=== PATIENT | female | born 1990 | race Caucasian/White ===

== ENCOUNTER 2021-12-18 18:38 | Emergency (ER) | payer MEDICAID, SELFPAY ==
[2021-12-18 19:57] VITALS: BP 125/88; PULSE 84; RESP 16; TEMP 36.9; O2SAT 98; BMI 22.6
--- NOTE | 2021-12-18 21:46 | W.ED.GENADLT ---
Documented by User: Ave Aranda MD 12/25/21 11:12 HPI - General Adult General: Chief complaint: Abdominal Pain Stated complaint: abd pain Time Seen by Provider: 12/18/21 20:51 History of Present Illness: Patient is 31-year-old female history of presenting to the emergency room with complaints of left-sided flank and periumbilical pain. Patient tells me pain is been going for the last 5 days. In the last 2 days, the pain has evolved from a dull pain to occasionally achy intense pain. Pain is not worse with p.o. intake. Patient denies any fever/chills, nausea/vomiting cough runny nose or sore throat. Patient has any diarrhea, melena medic easier. Patient recently was treated for UTI. Patient has no prior history renal colic. Patient denies any new vaginal bleeding or pelvic discharge. Onset: 5 days ago Duration:5 days Location:home Severity:moderate Associated symptoms: Deny chest pain, dyspnea, nausea, rash, palpitations or vomiting Review of Systems Const: Denies: fever(s) or chills Eyes: Denies: change in vision ENMT: Denies: mouth pain Card: Denies: chest pain or palpitations Resp: Denies: dyspnea or non-productive cough GI: Reports: abdominal pain (+L flank and periumbilical abd pain); Denies: nausea, vomiting or diarrhea : Denies: dysuria Musc: Denies: extremity pain Skin/Breast: Denies: rash or new lesions Neuro: Denies: weakness in extremities Psych: Reports: other (Normal mood) Gildardo/Lymph: Denies: easy bruising PFS ED PFSH: Surgical History Hx of section Social History Smoking and tobacco status: never smoked Alcohol intake: never Substance/Drug Use: never Physical Exam Const: COMMON NORMALS: alert HENMT: COMMON NORMALS: atraumatic HEAD & SCALP: atraumatic MOUTH: moist mucous membranes not abnormal Eye: COMMON NORMALS: EOMs intact bilaterally and conjunctivae normal CONJUNCTIVA: Yes conjunctivae normal Neck/C-Spine: COMMON NORMALS: full ROM and supple Resp: COMMON NORMALS: normal respiratory effort and clear to auscultation bilaterally AUSCULTATION: clear to auscultation bilaterally Cardio: COMMON NORMALS: regular rate RATE: regular rate GI: COMMON NORMALS: Soft to palpation PALPATION: Yes Soft to palpation OTHER: + Mild left flank tenderness palpation, mild left periumbilical abd tenderness palpation, no guarding rebound, guarding, rigidity. No CVA tenderness to percussion. Neg Rodriguez/Neg McBurney's point tenderness, no suprabupic tenderness to palpation. Extremity: COMMON NORMALS: full ROM Neuro: SENSORIUM/ORIENTATION: Yes alert MOTOR EXAM: No Abnormal motor strength present and Other motor observations present (no focal motor deficits) Psych: COMMON NORMALS: speech normal SPEECH: Yes normal speech MOOD & AFFECT: Yes euthymic mood Course Vital Signs: Vital signs: Vital Signs Temperature 98.5 F 12/18/21 19:57 Pulse Rate 74 12/19/21 01:24 Respiratory Rate 16 12/19/21 01:24 Blood Pressure 108/67 12/19/21 01:24 Pulse Oximetry 98 12/19/21 01:24 Oxygen Delivery Me thod 12/19/21 01:02 MDM - General Adult Medical Decision Making 31-year-old female history of prior presenting to the emergency room with left left flank and periumbilical pain for the last 5 days worsening the last 2. On exam, patient is mild tenderness palpation left flank and left periumbilical area. No guarding or rebound tenderness. No CVA tenderness. Patient is afebrile today. CT negative for any acute findings. No suspicion for other acute intra-abdominal pathology including SBO, biliary pathology, appendicitis, diverticulitis, or other emergent condition requiring surgery. UA consistent with UTI. Disposition: Discharge. Patient counseled regarding diagnostic impression, treatment plan. Patient given ED strict return precautions to return for continuation, worsening, or development of new symptoms. Instructed to f/u w/ PCP regarding symptoms today. Patient verbalized understanding. Lab Data : 12/18/21 22:25 12/18/21 21:56 Radiology Impressions Abdomen/Pelvis CT 12/18/21 22:59 IMPRESSION: No acute findings. Laboratory Results WBC 9.4 10^3/uL (4.0-10.0) 12/18/21 22:25 Corrected WBC Cancelled 12/18/21 21:56 RBC 4.18 10^6/uL (4.1-5.3) 12/18/21 22:25 Hgb 12.6 g/dL (11.5-15.3) 12/18/21 22: Hct 39.5 % (37.0-47.0) 12/18/21 22: MCV 94.5 fl (81-99) 12/18/21 22: MCH 30.1 pg (28.0-34.0) 12/18/21: MCHC 31.9 g/dL (30.0-36.0) 12/18/21: RDW 13.2 % (12.1-15.1) 12/18/21: Plt Count 246 10^3/cmm (130-400) 12/18/21: MPV 10.6 fL (7.4-10.4) H 12/18/21 22:25 Gran % Cancelled 12/18/21 21:56 Neut % (Auto) 51.2 % 12/18/21 22: Lymph % (Auto) 39.8 % 12/18/21 22:25 Whitman % (Auto) 7.3 % 12/18/21 22: Eos % (Auto) 1.3 % 12/18/21 22:25 Baso % (Auto) 0.2 % 12/18/21: Neut # (Auto) 4.82 10^3/uL (1.8-7.7) 12/18/21: Lymph # (Auto) 3.8 10^3/uL (0.8-4.8) 12/18/21 22: Whitman # (Auto) 0.7 10^3/uL (0.2-0.9) 12/18/21 22: Eos # (Auto) 0.1 10^3/uL (0.0-0.8) 12/18/21: Baso # (Auto) 0.0 10^3/uL (0.0-0.1) 12/18/21 22: Absolute Gran (auto) Cancelled 12/18/21 21:56 Nucleated RBC % (auto) 0 % 12/18/21: Nucleated RBCs # 0.0 /100WBC 12/18/21 22:25 Sodium 138 mmol/L (136-145) 12/18/21 21:56 Potassium 4.4 mmol/L (3.5-5.1) 12/18/21 21:56 Chloride 102 mmol/L (98-107) 12/18/21 21:56 Carbon Dioxide 27 mmol/L (22-29) 12/18/21 21:56 Anion Gap 13.4 (5-19) 12/18/21 21:56 BUN 10 mg/dL (6-20) 12/18/21 21:56 Creatinine 0.6 mg/dL (0.5-0.9) 12/18/21 21:56 GFR Calculation 116.6 mL/min (90-130) 12/18/21 21:56 Glucose 87 mg/dL (65-115) 12/18/21 21:56 Calculated Osmolality 284 mOsm/kg (285-295) L 12/18/21 21:56 Calcium 9.4 mg/dL (8.5-10.5) 12/18/21 21:56 Total Bilirubin 0.2 mg/dL (0.15-1.2) 12/18/21 21:56 AST 17 U/L (0-32) 12/18/21 21:56 ALT 11 U/L (0-33) 12/18/21 21:56 Alkaline Phosphatase 96 IU/L (35-105) 12/18/21 21:56 Total Protein 7.3 g/dL (6.6-8.7) 12/18/21 21:56 Albumin 4.6 g/dL (3.5-5.2) 12/18/21 21:56 Globulin 2.7 g/dL (1.3-4.6) 12/18/21 21:56 Lipase 45 U/L (13-60) 12/18/21 21:56 Urine Color Colorless (Yellow) 12/18/21 19:55 Urine Appearance Clear (CLEAR) 12/18/21 19:55 Urine pH 7 (5-7) 12/18/21 19:55 Ur Specific [place] 1.000 (1.005-1.030) L 12/18/21 19:55 Urine Protein Neg (Negative) 12/18/21 19:55 Urine Glucose (UA) Norm (Normal) 12/18/21 19:55 Urine Ketones Negative (Negative) 12/18/21 19:55 Urine Blood Neg (Negative) 12/18/21 19:55 Urine Nitrate Negative (Negative) 12/18/21 19:55 Urine Bilirubin Neg (Negative) 12/18/21 19:55 Urine Urobilinogen Norm mg/dL (Negative) 12/18/21 19:55 Ur Leukocyte Esterase 2+ (Negative) H 12/18/21 19:55 Urine RBC 0-4 /hpf (0-2) H 12/18/21 19:55 Urine WBC 40-55 /hpf (0-5) H 12/18/21 19:55 Ur Squamous Epith Cells 0-4 /hpf (0-5) H 12/18/21 19:55 Amorphous Sediment Not Reportable 12/18/21 19:55 Urine Bacteria Trace /hpf (NONE) 12/18/21 19:55 Urine HCG, Qual Negative (Negative) 12/18/21 19:55 Imaging Data Other Imaging: Radiologist's impression: [place] [address] CT Scan Report Signed Patient: Neva Crane Unit #: [id number] : 1990 Age/Sex: 31 / F ADM Date: 12/18/21 Loc: ER Room/Bed: Attending Dr: Ordering Provider/Ordering MD: Ave Aranda MD Date of Service: 12/18/21 Procedure(s): CT abdomen pelvis w con* [id number] Accession Number(s): [id number] Report Number: [id number] PROCEDURE INFORMATION: Exam: CT Abdomen And Pelvis With Contrast Exam date and time: 12/18/2021 11:41 PM Age: 31 years old Clinical indication: Abdominal pain; Localized; Left lower quadrant (llq); Prior surgery; Surgery type: Csection; Patient HX: Llq pain with dysuria. ; Additional info: Abd pain TECHNIQUE: Imaging protocol: Computed tomography of the abdomen and pelvis with contrast. Radiation optimization: All CT scans at this facility use at least one of these dose optimization techniques: automated exposure control; mA and/or kV adjustment per patient size (includes targeted exams where dose is matched to clinical indication); or iterative reconstruction. Contrast material: OMNI 350; Contrast volume: 80 ml; Contrast route: INTRAVENOUS (IV);? COMPARISON: No relevant prior studies available. RADIATION DOSE METRICS: Total DLP (mGy-cm): 341.13 FINDINGS: Lungs: Lung bases are clear. Liver: The liver is normal. Gallbladder and bile ducts: The gallbladder is normal. There is no biliary dilation. Pancreas: The pancreas is unremarkable. Spleen: The spleen is unremarkable. Adrenal glands: The adrenal glands are unremarkable. Kidneys and ureters: The kidneys are unremarkable. No hydronephrosis or stones. No ureteral dilation. Stomach and bowel: The stomach is decompressed, preventing meaningful evaluation of wall thickness. The small bowel is nondilated. The colon is unremarkable. Appendix: The appendix is normal. Intraperitoneal space: There is no intraperitoneal free air. Vasculature: The aorta is unremarkable. There is no aneurysm. The portal, splenic and superior mesenteric veins are patent. Lymph nodes: There is no lymphadenopathy in the retroperitoneum, mesentery, pelvis or inguinal regions. Urinary bladder: The urinary bladder is unremarkable. Reproductive: The uterus is unremarkable. There is no adnexal mass or large cyst. Bones/joints: Bones are unremarkable. Soft tissues: The abdominal wall is intact. CT/CT abdomen pelvis w con* [id number] IMPRESSION: No acute findings. ? Dictated By: Hugo Bronson MD Signed By: Hugo Bronson MD Signed Date/Time: 12/19/21 0033 DD/ [id number] Discharge Plan Discharge Patient Disposition: Home Clinical Impression: Abdominal pain, UTI (urinary tract infection) Condition: Stable Prescriptions: New ondansetron 4 mg tablet,disintegrating 4 mg PO Q8H PRN (Reason: nausea and vomiting) Qty: 15 0RF Discharge Orders: Discharge ED (Routine); Ordered 12/19/21 Ordered By: Bridger Pierre Discharge Diet: Advance as tolerated and Clear Liquid Discharge Activity: Increase activity as tolerated Patient Instructions: Urinary Tract Infection in Women (ED), Abdominal Pain (ED) Activity Restrictions/Additional Instructions: Thank you for visiting the emergency department. You were seen and evaluated for abdominal pain and generalized symptoms. The exact cause of your symptoms is unclear however may be related to mild urinary tract infection. This will be treated with antibiotics. Please follow-up with your primary care provider. Please return to the emergency department for worsening symptoms, inability tolerate oral intake, or anything else that you are concerned about and feel needs emergency department evaluation. Stand Alone Forms: Work/School Release Sign Out Sign Out Data: Patient Sign Out occurred on 12/18/21 at 23:07. Patient's care was discussed, and care was transferred from to Bridger Pierre MD. Coding Level of Care Code ED Mission Support Specialist for Chg Fwd Exam Comprehensive Documented by User: Bridger Pierre MD 01/03/22 06:15 HPI - General Adult General: Chief complaint: Abdominal Pain Stated complaint: abd pain Time Seen by Provider: 12/18/21 20:51 PFSH ED PFSH: Surgical History Hx of section Social History Smoking and tobacco status: never smoked Alcohol intake: never Substance/Drug Use: never Course Vital Signs: Vital signs: Vital Signs Temperature 98.5 F 12/18/21 19:57 Pulse Rate 74 12/19/21 01:24 Respiratory Rate 16 12/19/21 01:24 Blood Pressure 108/67 12/19/21 01:24 Pulse Oximetry 98 12/19/21 01:24 Oxygen Delivery Me thod 12/19/21 01:02 MDM - General Adult Medical Decision Making 31-year-old female history of prior presenting to the emergency room with left left flank and periumbilical pain for the last 5 days worsening the last 2. On exam, patient is mild tenderness palpation left flank and left periumbilical area. No guarding or rebound tenderness. No CVA tenderness. Patient is afebrile today. CT negative for any acute findings. No suspicion for other acute intra-abdominal pathology including SBO, biliary pathology, appendicitis, diverticulitis, or other emergent condition requiring surgery. UA consistent with UTI. Disposition: Discharge. Patient counseled regarding diagnostic impression, treatment plan. Patient given ED strict return precautions to return for continuation, worsening, or development of new symptoms. Instructed to f/u w/ PCP regarding symptoms today. Patient verbalized understanding. Patient care handoff received from Dr. Aranda pending completion of ED evaluation. I reviewed labs and imaging. Patient currently on antibiotics for UTI. CT without obvious cause of patient's symptoms. Satisfactory for outpatient management. Bridger Pierre MD Emergency Medicine Lab Data : 12/18/21 22:25 12/18/21 21:56 Radiology Impressions Abdomen/Pelvis CT 12/18/21 22:59 IMPRESSION: No acute findings. Laboratory Results WBC 9.4 10^3/uL (4.0-10.0) 12/18/21 22:25 Corrected WBC Cancelled 12/18/21 21:56 RBC 4.18 10^6/uL (4.1-5.3) 12/18/21 22:25 Hgb 12.6 g/dL (11.5-15.3) 12/18/21 22:25 Hct 39.5 % (37.0-47.0) 12/18/21 22: MCV 94.5 fl (81-99) 12/18/21 22:25 MCH 30.1 pg (28.0-34.0) 12/18/21 22: MCHC 31.9 g/dL (30.0-36.0) 12/18/21 22: RDW 13.2 % (12.1-15.1) 12/18/21 22:25 Plt Count 246 10^3/cmm (130-400) 12/18/21 22:25 MPV 10.6 fL (7.4-10.4) H 12/18/21 22:25 Gran % Cancelled 12/18/21 21:56 Neut % (Auto) 51.2 % 12/18/21 22:25 Lymph % (Auto) 39.8 % 12/18/21 22:25 Whitman % (Auto) 7.3 % 12/18/21 22:25 Eos % (Auto) 1.3 % 12/18/21 22:25 Baso % (Auto) 0.2 % 12/18/21 22:25 Neut # (Auto) 4.82 10^3/uL (1.8-7.7) 12/18/21 22: Lymph # (Auto) 3.8 10^3/uL (0.8-4.8) 12/18/21 22:25 Whitman # (Auto) 0.7 10^3/uL (0.2-0.9) 12/18/21 22:25 Eos # (Auto) 0.1 10^3/uL (0.0-0.8) 12/18/21 22:25 Baso # (Auto) 0.0 10^3/uL (0.0-0.1) 12/18/21 22:25 Absolute Gran (auto) Cancelled 12/18/21 21:56 Nucleated RBC % (auto) 0 % 12/18/21 22:25 Nucleated RBCs # 0.0 /100WBC 12/18/21 22:25 Sodium 138 mmol/L (136-145) 12/18/21 21:56 Potassium 4.4 mmol/L (3.5-5.1) 12/18/21 21:56 Chloride 102 mmol/L (98-107) 12/18/21 21:56 Carbon Dioxide 27 mmol/L (22-29) 12/18/21 21:56 Anion Gap 13.4 (5-19) 12/18/21 21:56 BUN 10 mg/dL (6-20) 12/18/21 21:56 Creatinine 0.6 mg/dL (0.5-0.9) 12/18/21 21:56 GFR Calculation 116.6 mL/min (90-130) 12/18/21 21:56 Glucose 87 mg/dL (65-115) 12/18/21 21:56 Calculated Osmolality 284 mOsm/kg (285-295) L 12/18/21 21:56 Calcium 9.4 mg/dL (8.5-10.5) 12/18/21 21:56 Total Bilirubin 0.2 mg/dL (0.15-1.2) 12/18/21 21:56 AST 17 U/L (0-32) 12/18/21 21:56 ALT 11 U/L (0-33) 12/18/21 21:56 Alkaline Phosphatase 96 IU/L (35-105) 12/18/21 21:56 Total Protein 7.3 g/dL (6.6-8.7) 12/18/21 21:56 Albumin 4.6 g/dL (3.5-5.2) 08/10/22 21:56 Globulin 2.7 g/dL (1.3-4.6) 12/18/21 21:56 Lipase 45 U/L (13-60) 12/18/21 21:56 Urine Color Colorless (Yellow) 12/18/21 19:55 Urine Appearance Clear (CLEAR) 12/18/21 19:55 Urine pH 7 (5-7) 12/18/21 19:55 Ur Specific [place] 1.000 (1.005-1.030) L 12/18/21 19:55 Urine Protein Neg (Negative) 12/18/21 19:55 Urine Glucose (UA) Norm (Normal) 12/18/21 19:55 Urine Ketones Negative (Negative) 12/18/21 19:55 Urine Blood Neg (Negative) 12/18/21 19:55 Urine Nitrate Negative (Negative) 12/18/21 19:55 Urine Bilirubin Neg (Negative) 12/18/21 19:55 Urine Urobilinogen Norm mg/dL (Negative) 12/18/21 19:55 Ur Leukocyte Esterase 2+ (Negative) H 12/18/21 19:55 Urine RBC 0-4 /hpf (0-2) H 12/18/21 19:55 Urine WBC 40-55 /hpf (0-5) H 12/18/21 19:55 Ur Squamous Epith Cells 0-4 /hpf (0-5) H 12/18/21 19:55 Amorphous Sediment Not Reportable 12/18/21 19:55 Urine Bacteria Trace /hpf (NONE) 12/18/21 19:55 Urine HCG, Qual Negative (Negative) 12/18/21 19:55 Discharge Plan Discharge Patient Disposition: Home Clinical Impression: Abdominal pain, UTI (urinary tract infection) Condition: Stable Prescriptions: New ondansetron 4 mg tablet,disintegrating 4 mg PO Q8H PRN (Reason: nausea and vomiting) Qty: 15 0RF Discharge Orders: Discharge ED (Routine); Ordered 12/19/21 Ordered By: Bridger Pierre Discharge Diet: Advance as tolerated and Clear Liquid Discharge Activity: Increase activity as tolerated Patient Instructions: Urinary Tract Infection in Women (ED), Abdominal Pain (ED) Activity Restrictions/Additional Instructions: Thank you for visiting the emergency department. You were seen and evaluated for abdominal pain and generalized symptoms. The exact cause of your symptoms is unclear however may be related to mild urinary tract infection. This will be treated with antibiotics. Please follow-up with your primary care provider. Please return to the emergency department for worsening symptoms, inability tolerate oral intake, or anything else that you are concerned about and feel needs emergency department evaluation. Stand Alone Forms: Work/School Release Sign Out Sign Out Data: Patient Sign Out occurred on 12/18/21 at 23:07. Patient's care was discussed, and care was transferred from to Bridger Pierre MD. Coding Level of Care Code ED Mission Support Specialist for Chg Fwd Exam Comprehensive
[2021-12-18 22:22] LABS: Add Urine Culture? Yes; Add Urine Microscopic? YES; Bacteria Urine TRACE /hpf; Bilirubin Urine Neg (Negative); Blood Urine Neg (Negative); Glucose Urine UA Norm (Normal); Ketones Urine Negative (Negative); Leukocyte Esterase Urine 2+ (Negative); Nitrate Urine Negative (Negative); Protein Urine Neg (Negative); RBC Urine 0-4 /hpf (0-2); Squamous Epithelial Cell Urine 0-4 /hpf (0-5); Urine Appearance Clear (CLEAR); Urine Color Colorless (Yellow); Urobilinogen Urine Norm (Negative); WBC Urine 40-55 /hpf (0-5); pH Urine 7 (5-7)
[2021-12-18 22:24] LABS: Alanine Aminotransferase 11 U/L (0-33); Albumin Level 4.6 g/dL (3.5-5.2); Alkaline Phosphatase 96 IU/L (35-105); Aspartate Amino Transferase 17 U/L (0-32); Blood Urea Nitrogen 10 mg/dL (6-20); Calcium 9.4 mg/dL (8.5-10.5); Carbon Dioxide 27 mmol/L (22-29); Chloride 102 mmol/L (98-107); Globulin 2.7 g/dL (1.3-4.6); Glomerular Filtration Rate 116.6 mL/min (90-130); Glucose 87 mg/dL (65-115); Lipase 45 U/L (13-60); Osmolality Calculated 284 mOsm/kg (285-295); Sodium 138 mmol/L (136-145); Total Bilirubin 0.2 mg/dL (0.15-1.2); Total Protein 7.3 g/dL (6.6-8.7)
[2021-12-18 22:27] LABS: Anion Gap 13.4 (5-19); Potassium 4.4 mmol/L (3.5-5.1)
[2021-12-18 22:31] LABS: Basophils % 0.2 %; Eosinophils # 0.1 10^3/uL (0.0-0.8); Eosinophils % 1.3 %; Hematocrit 39.5 % (37.0-47.0); Hemoglobin 12.6 g/dL (11.5-15.3); Lymphocytes # 3.8 10^3/uL (0.8-4.8); Lymphocytes % 39.8 %; Mean Corpuscular HGB Conc 31.9 g/dL (30.0-36.0); Mean Corpuscular Hemoglobin 30.1 pg (28.0-34.0); Mean Corpuscular Volume 94.5 fl (81-99); Mean Platelet Volume 10.6 fL (7.4-10.4); Monocytes # 0.7 10^3/uL (0.2-0.9); Monocytes % 7.3 %; Neutrophils # 4.82 10^3/uL (1.8-7.7); Neutrophils % 51.2 %; Nucleated Red Blood Cells % 0 %; Platelet Count 246 10^3/cmm (130-400); Red Blood Count 4.18 10^6/uL (4.1-5.3); Red Cell Distribution Width 13.2 % (12.1-15.1); White Blood Count 9.4 10^3/uL (4.0-10.0)
[2021-12-18] MEDS: sodium chloride 0.9% 1,000 ML 999 ML IV (22:51)
[2021-12-18] MEDS: famotidine 20 mg/2 mL INJ IVP (22:51)
[2021-12-18] MEDS: lidocaine 2% viscous 15 ML, aluminum-mag hydrox-simethicon 30 ML, sucralfate oral liq 1 GM PO (22:51)
--- NOTE | 2021-12-18 22:59 | CTR_ITS ---
PROCEDURE INFORMATION: Exam: CT Abdomen And Pelvis With Contrast Exam date and time: 12/18/2021 11:41 PM Age: 31 years old Clinical indication: Abdominal pain; Localized; Left lower quadrant (llq); Prior surgery; Surgery type: Csection; Patient HX: Llq pain with dysuria. ; Additional info: Abd pain TECHNIQUE: Imaging protocol: Computed tomography of the abdomen and pelvis with contrast. Radiation optimization: All CT scans at this facility use at least one of these dose optimization techniques: automated exposure control; mA and/or kV adjustment per patient size (includes targeted exams where dose is matched to clinical indication); or iterative reconstruction. Contrast material: OMNI 350; Contrast volume: 80 ml; Contrast route: INTRAVENOUS (IV); COMPARISON: No relevant prior studies available. RADIATION DOSE METRICS: Total DLP (mGy-cm): 341.13 FINDINGS: Lungs: Lung bases are clear. Liver: The liver is normal. Gallbladder and bile ducts: The gallbladder is normal. There is no biliary dilation. Pancreas: The pancreas is unremarkable. Spleen: The spleen is unremarkable. Adrenal glands: The adrenal glands are unremarkable. Kidneys and ureters: The kidneys are unremarkable. No hydronephrosis or stones. No ureteral dilation. Stomach and bowel: The stomach is decompressed, preventing meaningful evaluation of wall thickness. The small bowel is nondilated. The colon is unremarkable. Appendix: The appendix is normal. Intraperitoneal space: There is no intraperitoneal free air. Vasculature: The aorta is unremarkable. There is no aneurysm. The portal, splenic and superior mesenteric veins are patent. Lymph nodes: There is no lymphadenopathy in the retroperitoneum, mesentery, pelvis or inguinal regions. Urinary bladder: The urinary bladder is unremarkable. Reproductive: The uterus is unremarkable. There is no adnexal mass or large cyst. Bones/joints: Bones are unremarkable. Soft tissues: The abdominal wall is intact. CT/CT abdomen pelvis w con* [id number] IMPRESSION: No acute findings.
[2021-12-18] MEDS: iohexol 350 mg/mL 100 mL Btl IV (23:43)
[2021-12-19 01:02] VITALS: BP 108/67; PULSE 74; RESP 16; O2SAT 98
[2021-12-19 01:24] VITALS: BP 108/67; PULSE 74; RESP 16; O2SAT 98
== END 2021-12-19 01:26 | disposition home or self-care (01) ==
PROVIDERS: Emergency Medicine; Emergency Provider Emergency Medicine
DX: N39.0 Urinary tract infection, site not specified (principal)
CPT/HCPCS: 36415; 74177; 80053; 81001; 81025; 83690; 85025; 87086; 96361; 96374; 99285; J3490; J7030; Q9967

== ENCOUNTER 2022-01-21 18:56 | Emergency (ER) | payer MEDICAID, SELFPAY ==
[2022-01-21 19:00] VITALS: BP 136/94; PULSE 99; RESP 16; TEMP 37.2; O2SAT 100; BMI 21.5
--- NOTE | 2022-01-21 19:16 | ECG_ITS ---
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 Measurements Intervals [place] Rate: 84 P: 36 NE: 174 QRS: -1 QRSD: 90 T: 23 QT: 367 QTc: 436 Interpretive Statements SINUS RHYTHM POSSIBLE RIGHT VENTRICULAR CONDUCTION DELAY [RSR (QR) IN V1/V2] No previous ECG available for comparison Electronically Signed On 01-22-2022 9:42:49 CDT by Leilani Barrera M.D. [email or web address] ([email or web address] [email or web address] defiance regional [email or web address]/[id number]
[2022-01-21 19:46] LABS: Basophils % 0.2 %; Eosinophils # 0.1 10^3/uL (0.0-0.8); Hematocrit 39.8 % (37.0-47.0); Hemoglobin 12.6 g/dL (11.5-15.3); Lymphocytes # 3.3 10^3/uL (0.8-4.8); Mean Corpuscular HGB Conc 31.7 g/dL (30.0-36.0); Mean Corpuscular Hemoglobin 29.6 pg (28.0-34.0); Mean Corpuscular Volume 93.6 fl (81-99); Mean Platelet Volume 10.4 fL (7.4-10.4); Monocytes # 0.9 10^3/uL (0.2-0.9); Monocytes % 8.9 %; Neutrophils # 5.39 10^3/uL (1.8-7.7); Neutrophils % 55.7 %; Nucleated Red Blood Cells % 0 %; Platelet Count 338 10^3/cmm (130-400); Red Blood Count 4.25 10^6/uL (4.1-5.3); Red Cell Distribution Width 12.5 % (12.1-15.1); White Blood Count 9.7 10^3/uL (4.0-10.0)
[2022-01-21 20:18] LABS: HCG, Serum Qual Negative (Negative); Troponin(5th) Baseline 6 ng/L (0-10)
[2022-01-21 20:22] LABS: Alanine Aminotransferase 13 U/L (0-33); Albumin Level 4.2 g/dL (3.5-5.2); Alkaline Phosphatase 111 U/L (35-105); Anion Gap 13.8 (5-19); Aspartate Amino Transferase 16 U/L (0-32); Blood Urea Nitrogen 15 mg/dL (6-20); Calcium 9.5 mg/dL (8.5-10.5); Carbon Dioxide 27 mmol/L (22-29); Chloride 104 mmol/L (98-107); Globulin 3.7 g/dL (1.3-4.6); Glomerular Filtration Rate 116.6 mL/min (90-130); Glucose 100 mg/dL (65-115); Osmolality Calculated 293 mOsm/kg (285-295); Potassium 3.8 mmol/L (3.5-5.1); Sodium 141 mmol/L (136-145); Total Bilirubin 0.2 mg/dL (0.15-1.2); Total Protein 7.9 g/dL (6.6-8.7)
== END 2022-01-21 23:47 | disposition left against medical advice (07) ==
PROVIDERS: Nurse Practitioner Family; Emergency Provider Family Medicine
DX: Z53.21 Procedure and treatment not carried out due to patient leaving prior to being seen by health care provider (principal)
CPT/HCPCS: 80053; 84484; 84703; 85025; 93005; 99284

== ENCOUNTER 2022-02-05 13:09 | Emergency (ER) | payer MEDICAID, SELFPAY ==
[2022-02-05 13:16] VITALS: BP 143/92; PULSE 96; RESP 15; TEMP 37.1; O2SAT 99; BMI 21.3
--- NOTE | 2022-02-05 13:20 | ECG_ITS ---
[facility] Test Date: 2022-02-05 Pat Name: Neva Crane Department: Room: Gender: Female Car Racer: : 1990 Requested By: Gerald Ortega Order Number: [id number] Linus MD: Rocky Stratton M.D. Measurements Intervals [place] Rate: 96 P: 56 NV: 162 QRS: 4 QRSD: 98 T: 42 QT: 347 QTc: 440 Interpretive Statements SINUS RHYTHM INTERPRETATION BASED ON A DEFAULT AGE OF 40 YEARS Compared to ECG 01/21/2022 19:16:15 No significant changes Electronically Signed On 02-05-2022 14:05:25 CDT by Rocky Stratton M.D. [id number]
--- NOTE | 2022-02-05 13:40 | XR_ITS ---
WS: [id number] Exam: XR chest 1V portable [id number] Date/Time of Exam: 02/05/2022 1:42 PM Reason For Exam: dyspnea/cough No priors. Findings: The lungs are clear and fully expanded. Costophrenic angles are sharp. No infiltrates. Bronchovascula r relief appears normal. Cardiac silhouette is unremarkable. Bony elements are intact. XR/XR chest 1V portable [id number] IMPRESSION: Unremarkable chest radiograph.
--- NOTE | 2022-02-05 13:45 | ED_ITS ---
HPI - Chest Pain General: Chief Complaint: Chest Pain Stated Complaint: chest pain Time Seen by Provider: 02/05/22 13:40 Source: patient Mode of arrival: ambulatory Limitations: no limitations History of Present Illness: 31-year-old female presents emergency room with complaints of chest discomfort. She has had it for approximately a month. She has not noticed anything that exacerbates or relieves it. She denies any fever sweats or chills. No productive cough no pleuritic-like chest pain. No ra diation of her symptoms and is not associated with shortness of breath. MD complaint: chest pain Onset (ago): month(s) (1) Timing of current episode: episodic Prior episodes: Yes Onset: during rest Pain radiation: none Severity: mild Quality: tightness Relieving factors: nothing Exacerbating factors: nothing Associated symptoms: Deny abdominal pain, diaphoresis, dyspnea, fever(s), leg edema, nausea, palpitations, sense of impending doom, syncope or vomiting Review of Systems Const: Denies: fever(s), chills, fatigue, malaise or diaphoresis ENMT: Denies: throat pain, ear or mastoid pain, nasal discharge or nasal congestion Card: Reports: chest pain; Denies: palpitations, irregular heart rhythm, edema or syncope Resp: Denies: dyspnea, productive cough, non-productive cough or wheezing GI: Denies: abdominal pain, nausea or vomiting : Denies: flank pain, difficulty voiding, dysuria, urinary frequency or urinary urgency Skin/Breast: Denies: rash or pruritus [facility] ED PFSH: Medical History Hx-TIA (transient ischemic attack) Surgical History Hx of section Hx of section Social History Smoking and tobacco status: former smoker Quit status (tobacco): has quit using tobacco Alcohol intake: never Female Reproductive History: Para: 1 Physical Exam Const: COMMON NORMALS: no acute distress GENERAL APPEARANCE: cooperative and comfortable ORIENTATION/CONSCIOUSNESS: Yes awake, Yes oriented to person, Yes oriented to place and Yes oriented to time HENMT: COMMON NORMALS: normocephalic, atraumatic and hearing grossly normal bilaterally HEAD & SCALP: normocephalic and atraumatic Lymph: LYMPHATIC: no lymphadenopathy noted and no lymphedema noted Resp: COMMON NORMALS: normal respiratory effort, No retractions, No use of accessory muscles and clear to auscultation bilaterally AUSCULTATION: clear to auscultation bilaterally Cardio: COMMON NORMALS: regular rate, regular rhythm and No murmurs present (Cardio) RATE: regular rate RHYTHM: regular rhythm GI: COMMON NORMALS: Soft to palpation and No hepatosplenomegaly present AUSCULTATION: Yes normoactive bowel sounds PALPATION: Yes Soft to palpation, No Tenderness to palpation present (GI), No Guarding due to palpation present (GI) and Yes No hepatosplenomegaly present Extremity: COMMON NORMALS: normal to inspection, capillary refill normal, no clubbing, cyanosis or edema, no calf tenderness and no pedal edema Neuro: SENSORIUM/ORIENTATION: Yes oriented to person, Yes oriented to place and Yes oriented to time Skin: COMMON NORMALS: no rashes or lesions noted GENERAL SKIN EXAM: no rashes or lesions noted Course Vital Signs: Vital signs: Vital Signs Temperature 98.8 F 02/05/22 13:16 Pulse Rate 100 02/05/22 13:54 Respiratory Rate 21 H 02/05/22 13:54 Blood Pressure 140/67 02/05/22 13:54 Pulse Oximetry 98 02/05/22 13:54 Oxygen Delivery Me thod 02/05/22 13:54 MDM - Chest Pain Medical Decision Making Labs imaging and EKG reviewed. She has had this intermittently mild. No acute findings. Discharge patient home follow-up with primary care and referred to cardiology. Medical Records I reviewed the patient's medical records. Lab Data I reviewed the patient's lab results. : 02/05/22 14:27 02/05/22 14:27 Radiology Impressions Chest X-Ray 02/05/22 13:40 IMPRESSION: Unremarkable chest radiograph. Laboratory Results WBC 7.2 10^3/uL (4.0-10.0) 02/05/22 14:27 RBC 4.32 10^6/uL (4.1-5.3) 02/05/22 14:27 Hgb 13.0 g/dL (11.5-15.3) 02/05/22 14:27 Hct 40.0 % (37.0-47.0) 02/05/22 14: MCV 92.6 fl (81-99) 02/05/22 14: MCH 30.1 pg (28.0-34.0) 02/05/22 14: MCHC 32.5 g/dL (30.0-36.0) 02/05/22 14: RDW 12.3 % (12.1-15.1) 02/05/22 14:27 Plt Count 292 10^3/cmm (130-400) 02/05/22 14: MPV 10.0 fL (7.4-10.4) 02/05/22 14: Neut % (Auto) 54.3 % 02/05/22 14: Lymph % (Auto) 34.7 % 02/05/22 14: Saunders % (Auto) 8.6 % 02/05/22 14: Eos % (Auto) 1.7 % 02/05/22 14: Baso % (Auto) 0.3 % 02/05/22 14: Neut # (Auto) 3.89 10^3/uL (1.8-7.7) 02/05/22 14: Lymph # (Auto) 2.5 10^3/uL (0.8-4.8) 02/05/22 14: Saunders # (Auto) 0.6 10^3/uL (0.2-0.9) 02/05/22 14: Eos # (Auto) 0.1 10^3/uL (0.0-0.8) 02/05/22 14: Baso # (Auto) 0.0 10^3/uL (0.0-0.1) 02/05/22 14: Nucleated RBC % (auto) 0 % 02/05/22 14: Nucleated RBCs # 0.0 /100WBC 02/05/22 14:27 Sodium 141 mmol/L (136-145) 02/05/22 14:27 Potassium 3.5 mmol/L (3.5-5.1) 02/05/22 14: Chloride 104 mmol/L (98-107) 02/05/22 14: Carbon Dioxide 28 mmol/L (22-29) 02/05/22 14:27 Anion Gap 12.5 (5-19) 02/05/22 14:27 BUN 11 mg/dL (6-20) 02/05/22 14:27 Creatinine 0.6 mg/dL (0.5-0.9) 02/05/22 14:27 GFR Calculation 116.6 mL/min (90-130) 02/05/22 14:27 Glucose 83 mg/dL (65-115) 02/05/22 14:27 Calculated Osmolality 291 mOsm/kg (285-295) 02/05/22 14:27 Calcium 9.2 mg/dL (8.5-10.5) 02/05/22 14:27 Troponin T Gen 5 ng/L 6 ng/L (0-10) 02/05/22 14:27 Discharge Plan Discharge Patient Disposition: Home Clinical Impression: Atypical chest pain Condition: Stable Prescriptions: No Action aspirin [Adult Low Dose Aspirin] 81 mg tablet,delayed release (DR/EC) 81 mg PO BID medroxyprogesterone [Depo-Provera] 150 mg/mL syringe 150 mg IM .[id number] 90 Days Qty: 1 3RF venlafaxine [Effexor XR] 37.5 mg capsule,extended release 24hr 37.5 mg PO DAILY Qty: 30 0RF hydroxyzine pamoate 25 mg capsule 25 mg PO TID PRN (Reason: itching) Qty: 90 0RF levetiracetam 250 mg tablet 250 mg PO BID Discharge Orders: Discharge ED (Routine); Ordered 02/05/22 Ordered By: Gerald Ya Referrals: Vickie Ochoa FNP-C [Primary Care Provider] - Patient Instructions: Opioid Safety, Pain Management Activity Restrictions/Additional Instructions: Follow-up with your primary care doctor. Case management will make arrangements for you to follow-up with cardiology. Coding Level of Care Code ED Brass Instrument Repair Technician for Nate Fwd Exam Comprehensive
[2022-02-05 13:54] VITALS: BP 140/67; PULSE 100; RESP 21; O2SAT 98
[2022-02-05 14:34] LABS: Basophils % 0.3 %; Eosinophils # 0.1 10^3/uL (0.0-0.8); Eosinophils % 1.7 %; Lymphocytes # 2.5 10^3/uL (0.8-4.8); Lymphocytes % 34.7 %; Mean Corpuscular HGB Conc 32.5 g/dL (30.0-36.0); Mean Corpuscular Hemoglobin 30.1 pg (28.0-34.0); Mean Corpuscular Volume 92.6 fl (81-99); Monocytes # 0.6 10^3/uL (0.2-0.9); Monocytes % 8.6 %; Neutrophils # 3.89 10^3/uL (1.8-7.7); Neutrophils % 54.3 %; Nucleated Red Blood Cells % 0 %; Platelet Count 292 10^3/cmm (130-400); Red Blood Count 4.32 10^6/uL (4.1-5.3); Red Cell Distribution Width 12.3 % (12.1-15.1); White Blood Count 7.2 10^3/uL (4.0-10.0)
[2022-02-05 14:55] LABS: Troponin T (5th) Once 6 ng/L (0-10)
[2022-02-05 14:56] LABS: Anion Gap 12.5 (5-19); Blood Urea Nitrogen 11 mg/dL (6-20); Calcium 9.2 mg/dL (8.5-10.5); Carbon Dioxide 28 mmol/L (22-29); Chloride 104 mmol/L (98-107); Glomerular Filtration Rate 116.6 mL/min (90-130); Glucose 83 mg/dL (65-115); Osmolality Calculated 291 mOsm/kg (285-295); Potassium 3.5 mmol/L (3.5-5.1); Sodium 141 mmol/L (136-145)
--- NOTE | 2022-02-06 09:33 | DCPLANNER ---
Addendum entered by Mckenna Vital 05/09/22 14:03: Patient had a follow up appointment scheduled with [facility] - patient did attend appointment. Addendum entered by Mckenna Vital 02/07/22 08:52: Patient has a follow up appointment scheduled for 04.17.22 at 3:[address] Marlow at [facility]. Clinic will call patient with appointment information. Original Note: roll out manager had message to schedule a follow up appointment for patient with cardiology. roll out manager sent patients information to the front office staff at [facility]. Patients information will be reviewed. Clinic will call patient with appointment information.
== END 2022-02-05 15:27 | disposition home or self-care (01) ==
PROVIDERS: Emergency Provider Family Medicine; PCP Nurse Practitioner Family
DX: R07.89 Other chest pain (principal); Z79.82 Long term (current) use of aspirin; Z86.73 Personal history of transient ischemic attack (TIA), and cerebral infarction without residual deficits; Z87.891 Personal history of nicotine dependence
CPT/HCPCS: 71045; 80048; 84484; 85025; 93005; 99285

== ENCOUNTER → 2022-02-27 11:13 | Outpatient (BNVA) | payer MEDICAID, SELFPAY | PROVIDERS: PCP Nurse Practitioner Family; Visit Provider Nurse Practitioner Family | DX: J02.9 Acute pharyngitis, unspecified (principal); F41.9 Anxiety disorder, unspecified; J03.00 Acute streptococcal tonsillitis, unspecified | CPT/HCPCS: 87880 ==

== ENCOUNTER → 2022-04-16 16:55 | Outpatient (BNVA) | payer MEDICAID, SELFPAY | PROVIDERS: PCP Nurse Practitioner Family; Visit Provider Family Medicine | DX: R09.81 Nasal congestion (principal); R06.02 Shortness of breath; J06.9 Acute upper respiratory infection, unspecified | CPT/HCPCS: 87426 ==

== ENCOUNTER 2022-04-25 08:25 | Emergency (ER) | payer MEDICAID, SELFPAY ==
[2022-04-25 08:27] VITALS: BP 128/86; PULSE 73; RESP 18; TEMP 37; O2SAT 100; BMI 23.2
[2022-04-25 08:33] VITALS: BP 142/87; PULSE 78; O2SAT 99
--- NOTE | 2022-04-25 09:16 | ECG_ITS ---
[facility] Test Date: 2022-04-25 Pat Name: Neva Crane Department: Room: Gender: Female Math Specialist: : 1990 Requested By: Wesley Prasad Order Number: [id number] Linus MD: Rocky Stratton M.D. Measurements Intervals [place] Rate: 69 P: 46 VT: 174 QRS: 22 QRSD: 77 T: 34 QT: 375 QTc: 404 Interpretive Statements SINUS RHYTHM LOW QRS VOLTAGE IN PRECORDIAL LEADS [QRS DEFLECTION < 1.0 mV IN CHEST LEADS] Compared to ECG 02/05/2022 13:13:53 Low QRS voltage now present Electronically Signed On 04-25-2022 13:46:45 ASSOCIATE PROFESSOR COMPUTER SCIENCE by Rocky Stratton M.D. [email or web address]. [email or web address] memorial hospitalNeocoretechcleveland clinic [id number]
--- NOTE | 2022-04-25 09:16 | XRR_ITS ---
PROCEDURE INFORMATION: Exam: XR Chest Exam date and time: 04/25/2022 9:42 AM Age: 32 years old Clinical indication: Pain; Angina pectoris and right-sided; Additional info: Right sided chest pain TECHNIQUE: Imaging protocol: Radiologic exam of the chest. Views: 1 view. COMPARISON: CR XR chest 1V portable [id number] 02/05/2022 1:45 PM FINDINGS: Lungs: Unremarkable. No consolidation. Pleural spaces: Unremarkable. No pleural effusion. No pneumothorax. Heart/Mediastinum: Unremarkable. No cardiomegaly. Bones/joints: Unremarkable. XR/XR chest 1V portable [id number] IMPRESSION: No acute findings.
--- NOTE | 2022-04-25 09:18 | W.ED.CHESTPA ---
HPI - Chest Pain General: Chief Complaint: Chest Pain Stated Complaint: chest pain 2xdays Time Seen by Provider: 04/25/22 08:38 History of Present Illness: 32-year-old female presents the emergency department complaining of right-sided chest pain. She reports that she had some chest congestion last week but never had a cough or fever. Her chest pain has been constant for the last 3 days. The only time she notices that it is worse is when she has to sneeze. She denies any exertional component, hemoptysis, fever, sputum production, wheezing, nausea, vomiting, abdominal pain, radiation to the back. She does endorse some anxiety as her mother had a heart attack at the age of 39. Associated symptoms: Deny abdominal pain, dyspnea, fever(s), nausea, syncope or vomiting Review of Systems General: Reports: 10 or more systems reviewed and unremarkable except in HPI and below Const: Denies: fever(s), chills or body aches Eyes: Denies: change in vision ENMT: Denies: throat pain Card: Reports: chest pain; Denies: edema, swelling of feet/ankles, lightheadedness, syncope, pre-syncope, dyspnea on exertion or orthopnea Resp: Denies: dyspnea or productive cough GI: Denies: abdominal pain, nausea, vomiting or diarrhea : Denies: flank pain, dysuria or urinary frequency Musc: Denies: neck pain, back pain, extremity pain or extremity swelling Skin/Breast: Denies: rash or erythema Neuro: Denies: headache(s), numbness in extremities or weakness in extremities Psych: Reports: anxiety PFSH ED PFSH: Medical History Hx-TIA (transient ischemic attack) Surgical History Hx of section Hx of section Family History Mother CAD (coronary artery disease) [place] at 39 Cancer Grandmother Cancer Grandfather Dementia Denies family history of Diabetes Clotting disorder Chronic kidney disease (CKD) Suicide Anesthesia complication Bleeding disorder Lung disease Stroke Social History Smoking and tobacco status: former smoker Quit status (tobacco): has quit using tobacco Alcohol intake: former Female Reproductive History: Para: 1 Physical Exam Const: COMMON NORMALS: no limitations, alert and well nourished EXAM LIMITATIONS: no altered mental status HENMT: COMMON NORMALS: normocephalic, atraumatic and external ears normal HEAD & SCALP: normocephalic and atraumatic EXTERNAL EAR: Yes external ears normal MOUTH: no muffled voice Eye: COMMON NORMALS: EOMs intact bilaterally, conjunctivae normal and no scleral icterus CONJUNCTIVA: Yes conjunctivae normal Neck/C-Spine: COMMON NORMALS: no JVD GENERAL: Yes normal visual inspection and Yes trachea midline Chest: CHEST: Yes Symmetrical chest wall rise, No crepitus, No localized rib tenderness with anteroposterior compression, No tenderness and No Ecchymosis present Resp: COMMON NORMALS: normal respiratory effort, No use of accessory muscles and clear to auscultation bilaterally AUSCULTATION: clear to auscultation bilaterally Cardio: COMMON NORMALS: no JVD, regular rate and regular rhythm; negative for S1 normal heart sound present and negative for S2 normal heart sound present RATE: regular rate RHYTHM: regular rhythm HEART SOUNDS: S1 abnormal, S2 abnormal, no click, no gallops and no murmurs GI: COMMON NORMALS: Soft to palpation and non-tender PALPATION: Yes Soft to palpation and No Guarding due to palpation present (GI) Extremity: COMMON NORMALS: normal to inspection Neuro: COMMON NORMALS: moves all extremities, no focal motor deficits and no sensory deficits noted SENSORIUM/ORIENTATION: Yes alert SPEECH: speech normal Psych: COMMON NORMALS: mental status grossly normal, Normal thought process present, cooperative and speech normal APPEARANCE: Yes grossly normal ATTITUDE: Yes calm SPEECH: Yes normal speech THOUGHT PROCESS: Normal thought process present OTHER: Patient is calm but I get the feeling that she has some anxiety she is managing Skin: COMMON NORMALS: no rashes or lesions noted, turgor normal and no jaundice GENERAL SKIN EXAM: no rashes or lesions noted and turgor normal Course Vital Signs: Vital signs: Vital Signs Temperature 98.6 F 04/25/22 08:27 Pulse Rate 85 04/25/22 09:33 Respiratory Rate 18 04/25/22 08:27 Blood Pressure 125/89 04/25/22 10:30 Pulse Oximetry 99 04/25/22 11:00 Oxygen Delivery Me thod 04/25/22 11:00 MDM - Chest Pain Medical Decision Making Patient presents with atypical chest pain. D-dimer obtained as she's on depo--it was neg. Trop neg. Lytes okay. CXR okay EKG shows NSR w/ nl axis, nl intervals, no concerning ST elevations or depressions. Pt d/c'd with f/u and return precautions. Lab Data 04/25/22 09:37 Radiology Impressions Chest X-Ray 04/25/22 09:16 IMPRESSION: No acute findings. Laboratory Results D-Dimer 0.46 ug/mIFEU (0-0.59) 04/25/22 09:37 Sodium 137 mmol/L (136-145) 04/25/22 09:37 Potassium 4.7 mmol/L (3.5-5.1) 04/25/22 09:37 Chloride 102 mmol/L (98-107) 04/25/22 09:37 Carbon Dioxide 28 mmol/L (22-29) 04/25/22 09:37 Anion Gap 11.7 (5-19) 04/25/22 09:37 BUN 14 mg/dL (6-20) 04/25/22 09:37 Creatinine 0.6 mg/dL (0.5-0.9) 04/25/22 09:37 GFR Calculation 115.9 mL/min (90-130) 04/25/22 09:37 Glucose 118 mg/dL (65-115) H 04/25/22 09:37 Calculated Osmolality 286 mOsm/kg (285-295) 04/25/22 09:37 Calcium 9.4 mg/dL (8.5-10.5) 04/25/22 09:37 Troponin T Baseline 6 ng/L (0-10) 04/25/22 09:37 Discharge Plan Discharge Patient Disposition: Home Clinical Impression: Atypical chest pain Condition: Stable Prescriptions: No Action aspirin [Adult Low Dose Aspirin] 81 mg tablet,delayed release (DR/EC) 81 mg PO BID fluoxetine 20 mg capsule 20 mg PO DAILY Qty: 30 2RF carvedilol 6.25 mg tablet 6.25 mg PO BID 30 Days Qty: 60 5RF Rx Instructions: must administer with a meal/food azithromycin 250 mg tablet See Rx Instructions PO .COMPLEX Qty: 6 0RF Rx Instructions: For 250 mg dose pack: take 500 mg today (day 1), then 250 mg for 4 days (days 2-5) PO fluticasone propionate [Flonase Allergy Relief] 50 mcg/actuation spray,suspension 2 spray intranasal DAILY Qty: 16 0RF Rx Instructions: administer into each nostril levetiracetam 250 mg tablet 250 mg PO BID Depo-Provera 150 mg/mL syringe 150 mg IM Q90D Discharge Orders: Discharge ED (Routine); Ordered 04/25/22 Ordered By: Wesley Prasad Referrals: Vickie Ochoa FNP-C [Primary Care Provider] - 7-10 days Discharge Diet: Usual diet Discharge Activity: Resume usual activity Patient Instructions: Chest Pain - Noncardiac, Chest Pain - Chest Wall, Chest Pain (ED) Activity Restrictions/Additional Instructions: Take naproxen or ibuprofen for pain control. Try a hot/warm compress on the chest wall or hot shower. Read handout for more details. Coding Level of Care Code ED Slubber Frame Changer for Nate Fwd Exam Comprehensive
[2022-04-25 09:33] VITALS: BP 142/87; PULSE 85; O2SAT 100
[2022-04-25] MEDS: ALPRAZolam 0.5 mg Tablet PO (09:36)
[2022-04-25 10:04] LABS: Troponin(5th) Baseline 6 ng/L (0-10)
[2022-04-25 10:05] LABS: Anion Gap 11.7 (5-19); Blood Urea Nitrogen 14 mg/dL (6-20); Calcium 9.4 mg/dL (8.5-10.5); Carbon Dioxide 28 mmol/L (22-29); Chloride 102 mmol/L (98-107); Glomerular Filtration Rate 115.9 mL/min (90-130); Glucose 118 mg/dL (65-115); Osmolality Calculated 286 mOsm/kg (285-295); Potassium 4.7 mmol/L (3.5-5.1); Sodium 137 mmol/L (136-145)
[2022-04-25 10:30] VITALS: BP 125/89; O2SAT 99
[2022-04-25 10:59] LABS: D Dimer 0.46 ug/mIFEU (0-0.59)
[2022-04-25 11:00] VITALS: O2SAT 99
[2022-04-25 11:51] VITALS: PULSE 90; O2SAT 100
== END 2022-04-25 11:50 | disposition home or self-care (01) ==
PROVIDERS: Emergency Provider Emergency Medicine; PCP Nurse Practitioner Family
DX: R07.89 Other chest pain (principal); Z86.73 Personal history of transient ischemic attack (TIA), and cerebral infarction without residual deficits; Z87.891 Personal history of nicotine dependence; Z79.82 Long term (current) use of aspirin
CPT/HCPCS: 36415; 71045; 80048; 84484; 85378; 93005; 99285

== ENCOUNTER 2022-06-23 13:56 | Emergency (ER) | payer MEDICAID, SELFPAY ==
[2022-06-23 14:01] VITALS: BP 142/100; PULSE 88; RESP 16; TEMP 36.2; O2SAT 97
--- NOTE | 2022-06-23 14:50 | W.ED.BACK ---
HPI - Back Pain/Injury General: Chief Complaint: Abdominal Pain Stated Complaint: Left side rib pain Time Seen by Provider: 06/23/22 14:39 Source: patient Mode of arrival: ambulatory Limitations: no limitations History of Present Illness: Patient is a 32-year-old female who presents to ED today with a complaint of back pain over the past 2 to 3 days. She states pain seems to be near her mid back with radiation into the left side of her back and around into her left abdomen. She denies any injury or trauma. She states she did feel nauseous yesterday but had no episodes of emesis. Bowel movements have been normal. She states she has been noticing dysuria and urinary urgency. No history of pyelonephritis or kidney/ureter stones. Patient has not been running fevers. She is not having any chest pain, shortness of breath, difficulty breathing. MD elicited complaint: back pain Onset (ago): day(s) Timing: constant Severity: moderate Similar Symptoms Previously: No Location: thoracic spine and left flank Radiation: abdomen Exacerbating factors: none Relieving factors: none Associated symptoms: Reports abdominal pain, dysuria, nausea and urinary urgency; Deny chills, change in bowel habits, fatigue, fever(s), hematuria or vomiting Work related injury: No Review of Systems Const: Denies: fever(s), chills, body aches, fatigue or malaise Card: Denies: chest pain Resp: Denies: dyspnea GI: Reports: abdominal pain and nausea; Denies: vomiting, change in bowel habits, hematochezia or melena : Reports: dysuria and urinary urgency; Denies: flank pain, difficulty voiding, urinary frequency, urinary hesitancy, hematuria or pelvic pain Musc: Reports: back pain; Denies: neck pain, extremity pain, extremity swelling, joint pain or joint swelling Skin/Breast: Denies: rash Neuro: Denies: headache(s), numbness in extremities, weakness in extremities or sensory changes PFSH ED PFSH: Medical History Hx-TIA (transient ischemic attack) Surgical History Hx of section Hx of section Family History Mother CAD (coronary artery disease) [place] at 39 Cancer Grandmother Cancer Grandfather Dementia Denies family history of Diabetes Clotting disorder Chronic kidney disease (CKD) Suicide Anesthesia complication Bleeding disorder Lung disease Stroke Social History Smoking and tobacco status: former smoker Quit status (tobacco): has quit using tobacco Alcohol intake: former Female Reproductive History: Para: 1 Physical Exam Const: COMMON NORMALS: no acute distress, average body habitus, patient oriented x3, no limitations, healthy appearing, alert and well nourished ORIENTATION/CONSCIOUSNESS: Yes awake, Yes oriented to person, Yes oriented to place and Yes oriented to time HENMT: COMMON NORMALS: normocephalic and atraumatic HEAD & SCALP: normal to inspection, normocephalic and atraumatic Chest: COMMONS NORMALS: normal inspection of the chest and normal palpation of entire chest wall Resp: COMMON NORMALS: normal respiratory effort and clear to auscultation bilaterally AUSCULTATION: clear to auscultation bilaterally Cardio: COMMON NORMALS: regular rate and regular rhythm RATE: regular rate RHYTHM: regular rhythm GI: COMMON NORMALS: Normal to inspection, nondistended, normoactive bowel sounds present, Soft to palpation, No hepatosplenomegaly present and no masses INSPECTION: Yes normal to inspection AUSCULTATION: Yes normoactive bowel sounds PALPATION: Yes Soft to palpation, Yes Tenderness to palpation present (GI) (throughout L abdomen, suprapubic; non-surgical exam), No Guarding due to palpation present (GI), No Rigid due to palpation and Yes No hepatosplenomegaly present : BLADDER/KIDNEY EXAM: Yes CVA tenderness on the left (mild) Back/Pelvis: COMMON NORMALS: thoracic and lumbar spine normal to inspection, no thoracic nor lumbar tenderness and thoraco-lumbar ROM normal GENERAL BACK: Yes CVA tenderness Extremity: COMMON NORMALS: normal to inspection GENERAL: Yes normal exam except as noted Neuro: ANASTASIA COMA SCALE: document GCS findings Anastasia coma scale eye opening: Spontaneous [place] coma scale verbal response: Orientated Anastasia coma scale motor response: Obey commands Anastasia coma scale total score: 15 COMMON NORMALS: patient oriented x3, moves all extremities, no focal motor deficits, no sensory deficits noted and gait normal SENSORIUM/ORIENTATION: Yes alert, Yes oriented to person, Yes oriented to place and Yes oriented to time Skin: COMMON NORMALS: no rashes or lesions noted GENERAL SKIN EXAM: no rashes or lesions noted Course Vital Signs: Vital signs: Vital Signs Temperature 97.2 F L 06/23/22 14:01 Pulse Rate 79 06/23/22 17:49 Respiratory Rate 16 06/23/22 14:01 Blood Pressure 133/96 06/23/22 17:49 Pulse Oximetry 100 06/23/22 17:49 Oxygen Delivery Me thod 06/23/22 16:45 MDM - Back Pain/Injury Medical Decision Making Patient here with left-sided back pain with radiation into her abdomen along with dysuria and urinary urgency. She clinically is in no acute distress. Her vital signs are stable. UA showing 2+ blood, 1+ leuks, 10-15 WBCs, and trace bacteria and mucus. She will be treated for a pyelonephritis. Will culture urine. Remainder of labs are unremarkable. Return to ED precautions given. Labs 06/23/22 14:55 06/23/22 14:55 Radiology Impressions Abdomen/Pelvis CT 06/23/22 16:00 IMPRESSION: 1. Limited noncontrast examination without CT evidence of acute intra-abdominal or pelvic pathology. 2. Additional findings, as above. Laboratory Results WBC 10.3 10^3/uL (4.0-10.0) H 06/23/22 14:55 RBC 4.55 10^6/uL (4.1-5.3) 06/23/22 14:55 Hgb 13.4 g/dL (11.5-15.3) 06/23/22 14:55 Hct 41.9 % (37.0-47.0) 06/23/22 14:55 MCV 92.1 fl (81-99) 06/23/22 14:55 MCH 29.5 pg (28.0-34.0) 06/23/22 14:55 MCHC 32.0 g/dL (30.0-36.0) 06/23/22 14:55 RDW 13.1 % (12.1-15.1) 06/23/22 14:55 Plt Count 262 10^3/cmm (130-400) 06/23/22 14:55 MPV 10.0 fL (7.4-10.4) 06/23/22 14:55 Neut % (Auto) 61.8 % 06/23/22 14:55 Lymph % (Auto) 26.7 % 06/23/22 14:55 [place] % (Auto) 9.2 % 06/23/22 14:55 Eos % (Auto) 1.7 % 06/23/22 14:55 Baso % (Auto) 0.3 % 06/23/22 14:55 Neut # (Auto) 6.38 10^3/uL (1.8-7.7) 06/23/22 14:55 Lymph # (Auto) 2.8 10^3/uL (0.8-4.8) 06/23/22 14:55 [place] # (Auto) 1.0 10^3/uL (0.2-0.9) H 06/23/22 14:55 Eos # (Auto) 0.2 10^3/uL (0.0-0.8) 06/23/22 14:55 Baso # (Auto) 0.0 10^3/uL (0.0-0.1) 06/23/22 14:55 Nucleated RBC % (auto) 0 % 06/23/22 14:55 Nucleated RBCs # 0.0 /100WBC 06/23/22 14:55 Sodium 137 mmol/L (136-145) 06/23/22 14:55 Potassium 4.3 mmol/L (3.5-5.1) 06/23/22 14:55 Chloride 101 mmol/L (98-107) 06/23/22 14:55 Carbon Dioxide 27 mmol/L (22-29) 06/23/22 14:55 Anion Gap 13.3 (5-19) 06/23/22 14:55 BUN 18 mg/dL (6-20) 06/23/22 14:55 Creatinine 0.6 mg/dL (0.5-0.9) 06/23/22 14:55 GFR Calculation 115.9 mL/min (90-130) 06/23/22 14:55 Glucose 90 mg/dL (65-115) 06/23/22 14:55 Calculated Osmolality 285 mOsm/kg (285-295) 06/23/22 14:55 Calcium 9.1 mg/dL (8.5-10.5) 06/23/22 14:55 Total Bilirubin 0.2 mg/dL (0.15-1.2) 06/23/22 14:55 AST 15 U/L (0-32) 06/23/22 14:55 ALT 20 U/L (0-33) 06/23/22 14:55 Alkaline Phosphatase 99 U/L (35-105) 06/23/22 14:55 Total Protein 7.5 g/dL (6.6-8.7) 06/23/22 14:55 Albumin 4.5 g/dL (3.5-5.2) 06/23/22 14:55 Globulin 3.0 g/dL (1.3-4.6) 06/23/22 14:55 Lipase 28 U/L (13-60) 06/23/22 14:55 HCG, Qual Negative (Negative) 06/23/22 14:55 Urine Color Yellow (Yellow) 06/23/22 14:45 Urine Appearance Clear (CLEAR) 06/23/22 14:45 Urine pH 6 (5-7) 06/23/22 14:45 Ur Specific [place] 1.015 (1.005-1.030) 06/23/22 14:45 Urine Protein Neg (Negative) 06/23/22 14:45 Urine Glucose (UA) Norm (Normal) 06/23/22 14:45 Urine Ketones Negative (Negative) 06/23/22 14:45 Urine Blood 2+ (Negative) H 06/23/22 14:45 Urine Nitrate Negative (Negative) 06/23/22 14:45 Urine Bilirubin Neg (Negative) 06/23/22 14:45 Urine Urobilinogen 1 mg/dL (Negative) H 06/23/22 14:45 Ur Leukocyte Esterase 1+ (Negative) H 06/23/22 14:45 Urine RBC 15-25 /hpf (0-2) H 06/23/22 14:45 Urine WBC 10-15 /hpf (0-5) H 06/23/22 14:45 Ur Squamous Epith Cells 5-10 /hpf (0-5) H 06/23/22 14:45 Amorphous Sediment Not Reportable 06/23/22 14:45 Urine Bacteria Trace /hpf (NONE) 06/23/22 14:45 Urine Mucus 1+ /hpf 06/23/22 14:45 Discharge Plan Discharge Patient Disposition: Home Clinical Impression: Pyelonephritis Condition: Stable Prescriptions: New Cipro 500 mg tablet 500 mg PO Q12H Qty: 14 0RF No Action aspirin [Adult Low Dose Aspirin] 81 mg tablet,delayed release (DR/EC) 81 mg PO BID fluoxetine 20 mg capsule 20 mg PO DAILY Qty: 30 2RF carvedilol 6.25 mg tablet 6.25 mg PO BID 30 Days Qty: 60 5RF Rx Instructions: must administer with a meal/food Flonase Allergy Relief 50 mcg/actuation spray,suspension 2 spray intranasal DAILY PRN (Reason: Allergy Symptoms) Rx Instructions: administer into each nostril levetiracetam 250 mg tablet 250 mg PO BID medroxyprogesterone [Depo-Provera] 150 mg/mL syringe 150 mg IM Q90D Discharge Orders: Discharge ED (Routine); Ordered 06/23/22 Ordered By: Deedee Coles Referrals: Vickie Ochoa FNP-C [Primary Care Provider] - Patient Instructions: Kidney Infection (ED), Pyelonephritis Activity Restrictions/Additional Instructions: As we discussed fill your antibiotics and begin them immediately. You need to return to the emergency department for repetitive episodes of vomiting, fevers greater than 100.4, generally feeling unwell or worse, severe back or flank pains, or any other concerns you may have. I hope you begin to feel better soon. Coding Level of Care Code ED Gunsmith Apprentice for Nate Castaneda
[2022-06-23] MEDS: ketorolac 30 mg/mL INJ IM (15:21)
[2022-06-23 15:22] LABS: Basophils % 0.3 %; Eosinophils # 0.2 10^3/uL (0.0-0.8); Eosinophils % 1.7 %; Hematocrit 41.9 % (37.0-47.0); Hemoglobin 13.4 g/dL (11.5-15.3); Lymphocytes # 2.8 10^3/uL (0.8-4.8); Lymphocytes % 26.7 %; Mean Corpuscular Hemoglobin 29.5 pg (28.0-34.0); Mean Corpuscular Volume 92.1 fl (81-99); Monocytes % 9.2 %; Neutrophils # 6.38 10^3/uL (1.8-7.7); Neutrophils % 61.8 %; Nucleated Red Blood Cells % 0 %; Platelet Count 262 10^3/cmm (130-400); Red Blood Count 4.55 10^6/uL (4.1-5.3); Red Cell Distribution Width 13.1 % (12.1-15.1); White Blood Count 10.3 10^3/uL (4.0-10.0)
[2022-06-23 15:38] LABS: HCG, Serum Qual Negative (Negative)
[2022-06-23 15:41] LABS: Alanine Aminotransferase 20 U/L (0-33); Albumin Level 4.5 g/dL (3.5-5.2); Alkaline Phosphatase 99 U/L (35-105); Anion Gap 13.3 (5-19); Aspartate Amino Transferase 15 U/L (0-32); Blood Urea Nitrogen 18 mg/dL (6-20); Calcium 9.1 mg/dL (8.5-10.5); Carbon Dioxide 27 mmol/L (22-29); Chloride 101 mmol/L (98-107); Glomerular Filtration Rate 115.9 mL/min (90-130); Glucose 90 mg/dL (65-115); Lipase 28 U/L (13-60); Osmolality Calculated 285 mOsm/kg (285-295); Potassium 4.3 mmol/L (3.5-5.1); Sodium 137 mmol/L (136-145); Total Bilirubin 0.2 mg/dL (0.15-1.2); Total Protein 7.5 g/dL (6.6-8.7)
[2022-06-23 15:42] VITALS: BP 121/92; PULSE 76; O2SAT 100
[2022-06-23 15:53] LABS: Bilirubin Urine Neg (Negative); Blood Urine 2+ (Negative); Glucose Urine UA Norm (Normal); Ketones Urine Negative (Negative); Leukocyte Esterase Urine 1+ (Negative); Nitrate Urine Negative (Negative); Protein Urine Neg (Negative); Specific Gravity, Urine 1.015 (1.005-1.030); Urine Appearance Clear (CLEAR); Urine Color Yellow (Yellow); Urobilinogen Urine 1 mg/dL (Negative); pH Urine 6 (5-7)
[2022-06-23 15:54] LABS: Add Urine Microscopic? YES; Mucus Urine 1+ /hpf; RBC Urine 15-25 /hpf (0-2)
[2022-06-23 15:55] LABS: Bacteria Urine TRACE /hpf
[2022-06-23 15:56] LABS: Add Urine Culture? Yes
--- NOTE | 2022-06-23 16:00 | CTR_ITS ---
PROCEDURE INFORMATION: Exam: CT Abdomen And Pelvis Without Contrast Exam date and time: 06/23/2022 4:35 PM Age: 32 years old Clinical indication: Pain; Other: L flank; Prior surgery; Surgery date: 6+ months; Surgery type: C section; Additional info: L back/flank pain TECHNIQUE: Imaging protocol: Computed tomography of the abdomen and pelvis without contrast. Axial, coronal and sagittal reformatted images were created and reviewed. Radiation optimization: All CT scans at this facility use at least one of these dose optimization techniques: automated exposure control; mA and/or kV adjustment per patient size (includes targeted exams where dose is matched to clinical indication); or iterative reconstruction. Other protocol: This patient has received [address] and 0 known cardiac nuclear medicine studies in the 12 months prior to the current study. COMPARISON: CT abdomen pelvis w con* [id number] 12/18/2021 11:41 PM RADIATION DOSE METRICS: Total DLP (mGy-cm): 353.54 FINDINGS: Liver: Unremarkable. Gallbladder and bile ducts: No radiodense gallstones. No biliary ductal dilatation. Pancreas: Unremarkable. Spleen: Coarse calcified splenic granulomata. Adrenal glands: Normal. No mass. Kidneys and ureters: No mass. No radiodense calculi. No hydronephrosis. Stomach and bowel: Moderate amount of retained stool in the colon. No obstruction. No bowel wall thickening. No pneumatosis. Appendix: Normal. Intraperitoneal space: No free fluid. No organized fluid collection. No free air. Vasculature: Unremarkable. No aneurysm. Lymph nodes: No pathologically enlarged lymph nodes. Urinary bladder: Unremarkable as visualized. Reproductive: Unremarkable. Bones/joints: No acute osseous abnormality. Soft tissues: Tiny, fat containing umbilical hernia. CT/CT kidney stone [id number] IMPRESSION: 1. Limited noncontrast examination without CT evidence of acute intra-abdominal or pelvic pathology. 2. Additional findings, as above.
[2022-06-23 16:45] VITALS: BP 133/96; PULSE 79; O2SAT 100
[2022-06-23] MEDS: cefTRIAXone 1,000 MG in water for injection-sterile 2.1 ML 1 MG IM (17:35)
[2022-06-23 17:49] VITALS: BP 133/96; PULSE 79; O2SAT 100
== END 2022-06-23 17:50 | disposition home or self-care (01) ==
PROVIDERS: Emergency Provider Physician Assistant; PCP Nurse Practitioner Family
DX: N12 Tubulo-interstitial nephritis, not specified as acute or chronic (principal); Z79.82 Long term (current) use of aspirin; Z87.891 Personal history of nicotine dependence; Z86.73 Personal history of transient ischemic attack (TIA), and cerebral infarction without residual deficits
CPT/HCPCS: 74176; 80053; 81001; 83690; 84703; 85025; 87086; 96365; 96372; 99285; J0696; J1885

== ENCOUNTER 2022-06-30 10:22 | Outpatient (CLI) | payer MEDICAID, SELFPAY ==
--- NOTE | 2022-06-30 | USCV_ITS ---
Rosa Maria Neva Age: 32 Gender: F : 1990 Exam Date: 06/30/2022 11:23 Ordering Phys: Triny Marlow MD ([email or web address]) Technologist: Anupam Christie Exam Location: [facility] [place] Indication: hypertrophy BP: 128 / 82 HR: 83 Rhythm: Sinus Technical Quality: Adequate MEASUREMENTS (Male / Female) Normal Values 2D ECHO LV Diastolic Diameter PLAX 4.3 cm 4.2 - 5.9 / 3.9 - 5.3 cm LV Systolic Diameter PLAX 2.5 cm IVS Diastolic Thickness 0.6 cm 0.6 - 1.0 / 0.6 - 0.9 cm IVS Systolic Thickness 1.2 cm LVPW Diastolic Thickness 1.1 cm 0.6 - 1.0 / 0.6 - 0.9 cm LVPW Systolic Thickness 1.5 cm LVOT Diameter 2.0 cm LV Ejection Fraction 2D Teich 73.3 % LV Ejection Fraction MOD 2C 68.6 % LV Ejection Fraction 2C AL 69.1 % LA Diameter 2.9 cm LA Width 2.7 cm LA Height 3.7 cm RA Width 2.8 cm RA Height 3.8 cm Aorta at Sinotubular Diameter 2.0 cm IVC Diameter 1.4 cm M-MODE Aortic Annulus Diameter 2.8 cm LA Ao Ratio MM 1.0 MV E Point Septal Separation 0.7 cm DOPPLER AV Peak Velocity 105.3 cm/s LVOT Peak Velocity 96.0 cm/s AV Area Cont Eq vti 3.3 cm squared AV Area Cont Eq pk 2.9 cm squared MV Peak Velocity 95.0 cm/s MV Area PHT 4.0 cm squared Mitral E to A Ratio 1.2 MV E' Velocity 43.5 cm/s Mitral E to MV E' Ratio 5.4 Mitral E to LV E' Lateral Ratio 5.2 Mitral E to LV E' Septal Ratio 5.6 Right Atrial Pressure 3.0 mmHg PV Peak Velocity 88.7 cm/s RV Acceleration Time 0.1 s RV Ejection Time 0.2 s RV AcT/ET 0.5 FINDINGS Left Ventricle Normal left ventricular size and systolic function, EF 64 %. No regional wall motion abnormalities. Right Ventricle Normal right ventricular size and systolic function. Right Atrium Normal right atrial size. Left Atrium The left atrium is normal in size. Mitral Valve No gross abnormalities noted Aortic Valve No gross abnormalities noted Tricuspid Valve No gross abnormalities noted. Pulmonic Valve No gross abnormalities noted Pericardium Normal pericardium without effusion. Aorta Normal ascending aorta dimension. IVC Normal inferior vena cava. CONCLUSIONS Normal left ventricular size and systolic function, EF 64 %. No regional wall motion abnormalities. Normal cardiac chamber sizes. No significant stenotic or regurgitant valvular lesions. There is no pericardial effusion. There are no intracardiac masses. No similar previous studies are available for comparison Dr Triny Marlow MD FACC (Electronically Signed) Final Date: 01 July 2022 20:06 S
== END 2022-06-30 10:23 | disposition home or self-care (01) ==
LOC: RAD 10:22
PROVIDERS: PCP Nurse Practitioner Family; Visit Provider Internal Medicine Cardiovascular Disease
DX: I51.7 Cardiomegaly (principal)
CPT/HCPCS: 93306

== ENCOUNTER 2022-08-18 12:11 | Outpatient (CLI) | payer OTHER, MEDICAID, SELFPAY ==
--- NOTE | 2022-08-18 | ECG_ITS ---
[facility] Test Date: 2022-08-18 Pat Name: Neva Crane Department: Room: Gender: Female Advertising Writer: Lupe Hidalgo : 1990 Requested By: Triny Marlow Order Number: [id number] Linus MD: Triny Marlow M.D. Interpretive Statements NAME OF STUDY: TREADMILL STRESS TEST INDICATION: Dyspnea, PROCEDURE: At the baseline, the patient's blood pressure was 109/84 with a heart rate of 86. The baseline electrocardiogram showed normal sinus rhythm poor R wave progression. Nonspecific T wave changes.. The patient exercised for 9 minutes on a standard Rohit protocol. Patient attained a maximum heart rate of 160 beats perminute (85 % of the maximum predicted heart rate) with a blood pressure at the peak exercise of 165/85 mm Hg. The EKG at the peak exercise revealed. Patient did not have any chest pain or any significant cardiac arrhythmias with the exercise During the recovery phase, there were no new changes. Blood pressure at the end of the recovery phase was 172/80 mm Hg with a heart rate of 105 per minute. CONCLUSION: 1. Normal EKG response to treadmill exercise 2. No exercise-induced chest pain or cardiac arrhythmia 3. Fair exercise tolerance, attained a maximum of 10.2 METs Electronically Signed On 08-24-2022 16:39:13 CDT by Triny Marlow M.D. [id number]
[2022-08-18 12:27] VITALS: BMI 22.6
[2022-08-18 13:10] VITALS: BP 117/80; PULSE 104
== END 2022-08-18 12:12 | disposition home or self-care (01) ==
LOC: CDL 12:13
PROVIDERS: PCP Nurse Practitioner Family; Visit Provider Internal Medicine Cardiovascular Disease
DX: R06.00 Dyspnea, unspecified (principal)
CPT/HCPCS: 93017

== ENCOUNTER → 2022-12-18 13:48 | Outpatient (BNVA) | payer OTHER, MEDICAID, SELFPAY | PROVIDERS: PCP Nurse Practitioner Family; Visit Provider Nurse Practitioner Family | DX: R30.0 Dysuria (principal); G40.909 Epilepsy, unspecified, not intractable, without status epilepticus; F41.9 Anxiety disorder, unspecified; N39.0 Urinary tract infection, site not specified | CPT/HCPCS: 81000 ==

== ENCOUNTER → 2023-01-22 14:28 | Outpatient (BNVA) | payer OTHER, MEDICAID, SELFPAY | PROVIDERS: PCP Nurse Practitioner Family; Visit Provider Nurse Practitioner Family | DX: Z30.9 Encounter for contraceptive management, unspecified (principal) | CPT/HCPCS: 81025 ==

== ENCOUNTER → 2023-02-08 11:30 | Outpatient (BNVA) | payer OTHER, MEDICAID, SELFPAY | PROVIDERS: PCP Nurse Practitioner Family; Visit Provider Registered Nurse Neonatal Intensive Care | DX: R10.30 Lower abdominal pain, unspecified (principal); N39.0 Urinary tract infection, site not specified | CPT/HCPCS: 81000; 87086 ==

== ENCOUNTER → 2023-03-25 15:28 | Outpatient (BNVA) | payer OTHER, MEDICAID, SELFPAY | PROVIDERS: PCP Nurse Practitioner Family; Visit Provider Nurse Practitioner | DX: R30.0 Dysuria (principal) | CPT/HCPCS: 81000; 87086 ==

== ENCOUNTER 2023-05-07 18:45 | Emergency (ER) | payer OTHER, MEDICAID, SELFPAY ==
[2023-05-07 19:08] VITALS: BP 116/83; PULSE 78; RESP 20; TEMP 36.6; O2SAT 98; BMI 27.3
[2023-05-07 19:12] LABS: Basophils % 0.3 %; Eosinophils # 0.2 10^3/uL (0.0-0.8); Eosinophils % 1.9 %; Hematocrit 41.9 % (36-47); Lymphocytes # 3.9 10^3/uL (0.8-4.8); Lymphocytes % 34.6 %; Mean Corpuscular HGB Conc 30.5 g/dL (30-55); Mean Corpuscular Hemoglobin 26.6 pg (27-33); Mean Corpuscular Volume 87.1 fl (85-98); Monocytes # 0.8 10^3/uL (0.2-0.9); Monocytes % 6.7 %; Neutrophils # 6.28 10^3/uL (1.8-7.7); Neutrophils % 56.3 %; Nucleated Red Blood Cells % 0 %; Platelet Count 327 10^3/cmm (157-399); Red Blood Count 4.81 10^6/uL (3.85-5.65); Red Cell Distribution Width 14.2 % (12.1-15.1); White Blood Count 11.14 10^3/uL (3.29-11.43)
[2023-05-07 19:28] LABS: HCG, Serum Qual Negative (Negative)
[2023-05-07 19:30] LABS: Alanine Aminotransferase 17 U/L (0-33); Albumin Level 4.4 g/dL (3.5-5.2); Alkaline Phosphatase 124 U/L (35-105); Anion Gap 16.3 (5-19); Aspartate Amino Transferase 17 U/L (0-32); Blood Urea Nitrogen 19 mg/dL (6-20); Calcium 9.4 mg/dL (8.5-10.5); Carbon Dioxide 24 mmol/L (22-29); Chloride 104 mmol/L (98-107); Globulin 3.3 g/dL (1.3-4.6); Glomerular Filtration Rate 96.4 mL/min (90-130); Glucose 112 mg/dL (65-115); Lipase 38 U/L (13-60); Osmolality Calculated 293 mOsm/kg (285-295); Potassium 4.3 mmol/L (3.5-5.1); Sodium 140 mmol/L (136-145); Total Bilirubin 0.2 mg/dL (0.15-1.2); Total Protein 7.7 g/dL (6.6-8.7)
[2023-05-07 21:26] VITALS: BP 126/85; PULSE 73; RESP 16; O2SAT 96
[2023-05-07 21:46] LABS: Bilirubin Urine Neg (Negative); Blood Urine Neg (Negative); Glucose Urine UA Norm (Normal); Ketones Urine Negative (Negative); Nitrate Urine Negative (Negative); Protein Urine Neg (Negative); Urine Appearance SL Hazy (CLEAR); Urine Color Light yellow (Yellow); Urobilinogen Urine Neg (Negative); pH Urine 5 (5-7)
[2023-05-07 21:47] LABS: Add Urine Culture? No; Add Urine Microscopic? YES; Bacteria Urine 1+ /hpf; Leukocyte Esterase Urine Trace (Negative); Mucus Urine 2+ /hpf; Squamous Epithelial Cell Urine 15-25 /hpf (0-5)
--- NOTE | 2023-05-07 22:23 | W.ED.ABDPA2 ---
HPI - Abdominal Pain General: Chief Complaint: Abdominal Pain Stated Complaint: low right front to back pain nausea Time Seen by Provider: 05/07/23 20:30 History of Present Illness: 33-year-old female presents emergency room with lower abdominal pain radiating to mid back for the past few days. Described pain as pressure-like sensation with severity of 7 out of 10. Denies any dysuria, hematuria urine frequency. Patient reveals having similar episode in the past before and was found to have UTI. She denies any nausea, vomiting, vaginal bleeding or vaginal discharge. Associated Symptoms: Reports nausea; Denies chills, coffee ground emesis, dysuria, fever(s), heartburn, hematuria, hematemesis and vomiting Review of Systems General: Reports: 10 or more systems reviewed and unremarkable except in HPI and below Const: Denies: fever(s), chills, body aches or change in appetite ENMT: Denies: throat pain, uvular edema or enlarged tonsils Card: Denies: chest pain, palpitations or irregular heart rhythm Resp: Denies: dyspnea, productive cough or non-productive cough GI: Reports: abdominal pain and nausea; Denies: vomiting, hematemesis, coffee ground emesis, dysphagia, heartburn or early satiety : Reports: flank pain; Denies: dysuria, urinary urgency, urinary hesitancy, dribbling, nocturia, oliguria, urinary incontinence or hematuria Neuro: Denies: headache(s), numbness in extremities, weakness in extremities, sensory changes, lack of coordination or difficulty walking [facility] ED PFSH: Medical History Hx-TIA (transient ischemic attack) Surgical History Hx of section Hx of section Family History Mother CAD (coronary artery disease) [place] at 39 Cancer Grandmother Cancer Grandfather Dementia Denies family history of Diabetes Clotting disorder Chronic kidney disease (CKD) Suicide Anesthesia complication Bleeding disorder Lung disease Stroke Social History Smoking and tobacco/nicotine status: former use of tobacco/nicotine Quit status (tobacco/nicotine): has quit using Second hand smoke exposure: No Alcohol intake: former Substance/Drug Use: former Adopted: No Caregiver/support person: No Lives independently: Yes Household members: children Number of children: 2 service: No Do you think of yourself as: Straight/Heterosexual Current gender identity: Female Female Reproductive History: Para: 1 Physical Exam Const: COMMON NORMALS: no acute distress, average body habitus, patient oriented x3, no limitations, healthy appearing, alert and well nourished HENMT: THROAT: no uvular edema Neck/C-Spine: COMMON NORMALS: no JVD Chest: COMMONS NORMALS: normal inspection of the chest, normal palpation of entire chest wall, normal inspection of the breasts and normal palpation of the breasts Breast/axilla inspection: Yes normal inspection of the breasts BREAST/AXILLA PALPATION: Yes normal palpation of the breasts Resp: COMMON NORMALS: normal respiratory effort, No retractions, No use of accessory muscles, clear to auscultation bilaterally and percussion normal AUSCULTATION: clear to auscultation bilaterally PERCUSSION: percussion normal Cardio: COMMON NORMALS: no JVD, regular rate, regular rhythm, S1 normal heart sound present, S2 normal heart sound present, No gallops present (Cardio), No clicks present (Cardio), No murmurs present (Cardio), No rub (Cardio) and Peripheral pulses 2+ throughout RATE: regular rate RHYTHM: regular rhythm HEART SOUNDS: S1 normal heart sound present and S2 normal heart sound present PERIPHERAL PULSES: Peripheral pulses 2+ throughout GI: COMMON NORMALS: Normal to inspection, nondistended, normoactive bowel sounds present, Soft to palpation, non-tender, No hepatosplenomegaly present, no masses and no bruits PALPATION: Yes Soft to palpation and Yes No hepatosplenomegaly present Neuro: COMMON NORMALS: patient oriented x3 SENSORIUM/ORIENTATION: Yes alert Course Vital Signs: Vital signs: Vital Signs Temperature 98 F 05/07/23 19:08 Pulse Rate 73 05/07/23 21:26 Respiratory Rate 16 05/07/23 21:26 Blood Pressure 126/85 05/07/23 21:26 Pulse Oximetry 96 05/07/23 21:26 MDM - Abdominal Pain Medical Decision Making Patient was made comfortable emergency room and had extensive workup including CBC, CMP, UA and test. Patient improved with current treatment. Lab Data 05/07/23 19:08 05/07/23 19:08 Labs/Radiology: Laboratory Results WBC 11.14 10^3/uL (3.29-11.43) 05/07/23 19:08 RBC 4.81 10^6/uL (3.85-5.65) 05/07/23 19:08 Hgb 12.80 g/dL (11.27-16.99) 05/07/23 19:08 Hct 41.9 % (36-47) 05/07/23 19:08 MCV 87.1 fl (85-98) 05/07/23 19:08 MCH 26.6 pg (27-33) L 05/07/23 19:08 MCHC 30.5 g/dL (30-55) 05/07/23 19:08 RDW 14.2 % (12.1-15.1) 05/07/23 19:08 Plt Count 327 10^3/cmm (157-399) 05/07/23 19:08 MPV 10.0 fL (7.4-10.4) 05/07/23 19:08 Neut % (Auto) 56.3 % 05/07/23 19:08 Lymph % (Auto) 34.6 % 05/07/23 19:08 [place] % (Auto) 6.7 % 05/07/23 19:08 Eos % (Auto) 1.9 % 05/07/23 19:08 Baso % (Auto) 0.3 % 05/07/23 19:08 Neut # (Auto) 6.28 10^3/uL (1.8-7.7) 05/07/23 19:08 Lymph # (Auto) 3.9 10^3/uL (0.8-4.8) 05/07/23 19:08 Lander # (Auto) 0.8 10^3/uL (0.2-0.9) 05/07/23 19:08 Eos # (Auto) 0.2 10^3/uL (0.0-0.8) 05/07/23 19:08 Baso # (Auto) 0.0 10^3/uL (0.0-0.1) 05/07/23 19:08 Nucleated RBC % (auto) 0 % 05/07/23 19:08 Nucleated RBCs # 0.0 /100WBC 05/07/23 19:08 Sodium 140 mmol/L (136-145) 05/07/23 19:08 Potassium 4.3 mmol/L (3.5-5.1) 05/07/23 19:08 Chloride 104 mmol/L (98-107) 05/07/23 19:08 Carbon Dioxide 24 mmol/L (22-29) 05/07/23 19:08 Anion Gap 16.3 (5-19) 05/07/23 19:08 BUN 19 mg/dL (6-20) 05/07/23 19:08 Creatinine 0.7 mg/dL (0.5-0.9) 05/07/23 19:08 GFR Calculation 96.4 mL/min (90-130) 05/07/23 19:08 Glucose 112 mg/dL (65-115) 05/07/23 19:08 Calculated Osmolality 293 mOsm/kg (285-295) 05/07/23 19:08 Calcium 9.4 mg/dL (8.5-10.5) 05/07/23 19:08 Total Bilirubin 0.2 mg/dL (0.15-1.2) 05/07/23 19:08 AST 17 U/L (0-32) 05/07/23 19:08 ALT 17 U/L (0-33) 05/07/23 19:08 Alkaline Phosphatase 124 U/L (35-105) H 05/07/23 19:08 Total Protein 7.7 g/dL (6.6-8.7) 05/07/23 19:08 Albumin 4.4 g/dL (3.5-5.2) 05/07/23 19:08 Globulin 3.3 g/dL (1.3-4.6) 05/07/23 19:08 Lipase 38 U/L (13-60) 05/07/23 19:08 HCG, Qual Negative (Negative) 05/07/23 19:08 Urine Color Light yellow (Yellow) 05/07/23 21:19 Urine Appearance Sl hazy (CLEAR) A 05/07/23 21:19 Urine pH 5 (5-7) 05/07/23 21:19 Ur Specific [place] 1.020 (1.005-1.030) 05/07/23 21:19 Urine Protein Neg (Negative) 05/07/23 21:19 Urine Glucose (UA) Norm (Normal) 05/07/23 21:19 Urine Ketones Negative (Negative) 05/07/23 21:19 Urine Blood Neg (Negative) 05/07/23 21:19 Urine Nitrate Negative (Negative) 05/07/23 21:19 Urine Bilirubin Neg (Negative) 05/07/23 21:19 Urine Urobilinogen Neg mg/dL (Negative) 05/07/23 21:19 Ur Leukocyte Esterase Trace (Negative) H 05/07/23 21:19 Urine RBC None /hpf (0-2) 05/07/23 21:19 Urine WBC 5-10 /hpf (0-5) H 05/07/23 21:19 Ur Squamous Epith Cells 15-25 /hpf (0-5) H 05/07/23 21:19 Amorphous Sediment Not Reportable 05/07/23 21:19 Urine Bacteria 1+ /hpf (NONE) H 05/07/23 21:19 Urine Mucus 2+ /hpf 05/07/23 21:19 No radiology studies performed this visit Discharge Plan Discharge Patient Disposition: Home Clinical Impression: Abdominal pain Qualifiers: Abdominal location: unspecified location Qualified Code(s): R10.9 - Unspecified abdominal pain UTI (urinary tract infection) Qualifiers: Urinary tract infection type: site unspecified Hematuria presence: without hematuria Qualified Code(s): N39.0 - Urinary tract infection, site not specified Condition: Stable Prescriptions: New Macrobid 100 mg capsule 100 mg PO BID 10 Days Qty: 20 0RF Rx Instructions: must administer with a meal/food promethazine 25 mg tablet 25 mg PO TID PRN (Reason: nausea and vomiting) Qty: 14 0RF No Action aspirin [Adult Low Dose Aspirin] 81 mg tablet,delayed release (DR/EC) 81 mg PO BID carvedilol 6.25 mg tablet 6.25 mg PO BID Qty: 180 3RF Rx Instructions: must administer with a meal/food levetiracetam 250 mg tablet 250 mg PO BID Qty: 60 5RF fluoxetine 20 mg capsule 20 mg PO DAILY Qty: 30 5RF medroxyprogesterone [Depo-Provera] 150 mg/mL syringe 150 mg IM Q90D Qty: 1 3RF ciprofloxacin HCl 500 mg tablet 500 mg PO BID 7 Days Qty: 14 0RF albuterol sulfate 90 mcg/actuation HFA aerosol inhaler 2 puff inhalation QID PRN (Reason: shortness of breath or wheezing) Qty: 6.7 5RF naproxen 500 mg tablet 500 mg PO BID PRN (Reason: pain) Qty: 60 0RF Discharge Orders: Discharge ED (Routine); Ordered 05/07/23 Ordered By: Erica Babcock Referrals: Vickie Ochoa FNP-C [Primary Care Provider] - Discharge Diet: Advance as tolerated Discharge Activity: Resume usual activity Patient Instructions: Abdominal Pain (ED), Opioid Safety, Pain Management Coding Level of Care Code ED National Investigative Producer for Nate Castaneda
[2023-05-07] MEDS: ketorolac 30 mg/mL INJ IVP (22:31)
== END 2023-05-07 22:44 | disposition home or self-care (01) ==
PROVIDERS: Emergency Medicine; Emergency Provider Family Medicine; PCP Nurse Practitioner Family
DX: N39.0 Urinary tract infection, site not specified (principal); R10.30 Lower abdominal pain, unspecified; Z79.82 Long term (current) use of aspirin; Z87.891 Personal history of nicotine dependence; Z86.73 Personal history of transient ischemic attack (TIA), and cerebral infarction without residual deficits
CPT/HCPCS: 36415; 80053; 81001; 83690; 84703; 85025; 96374; 99284; J1885

== ENCOUNTER → 2023-05-27 13:59 | Outpatient (BNVA) | payer OTHER, MEDICAID, SELFPAY | PROVIDERS: PCP Nurse Practitioner Family; Visit Provider Nurse Practitioner Family | DX: R10.9 Unspecified abdominal pain; Z87.440 Personal history of urinary (tract) infections; Z79.899 Other long term (current) drug therapy | CPT/HCPCS: 74018; 80053; 81000; 85025 ==

== ENCOUNTER → 2023-06-14 12:00 | Outpatient (BNVA) | payer OTHER, MEDICAID, SELFPAY | PROVIDERS: PCP Nurse Practitioner Family; Visit Provider Emergency Medicine | DX: R05.9 Cough, unspecified (principal); J10.1 Influenza due to other identified influenza virus with other respiratory manifestations | CPT/HCPCS: 87400 ==

== ENCOUNTER 2023-06-15 13:25 | Emergency (ER) | payer OTHER, MEDICAID, SELFPAY ==
[2023-06-15 13:44] VITALS: BP 121/81; PULSE 98; RESP 14; TEMP 37.7; O2SAT 97; BMI 25.4
[2023-06-15 14:55] LABS: Basophils % 0.1 %; Eosinophils % 0.4 %; Hematocrit 41.9 % (36-47); Lymphocytes # 1.6 10^3/uL (0.8-4.8); Lymphocytes % 21.4 %; Mean Corpuscular HGB Conc 31.5 g/dL (30-55); Mean Corpuscular Hemoglobin 27.1 pg (27-33); Mean Platelet Volume 10.9 fL (7.4-10.4); Monocytes # 0.8 10^3/uL (0.2-0.9); Monocytes % 10.8 %; Neutrophils # 5.08 10^3/uL (1.8-7.7); Nucleated Red Blood Cells % 0 %; Platelet Count 224 10^3/cmm (157-399); Red Blood Count 4.87 10^6/uL (3.85-5.65); Red Cell Distribution Width 14.2 % (12.1-15.1); White Blood Count 7.58 10^3/uL (3.29-11.43)
[2023-06-15 15:18] LABS: Alanine Aminotransferase 22 U/L (0-33); Alkaline Phosphatase 111 U/L (35-105); Anion Gap 16.3 (5-19); Aspartate Amino Transferase 19 U/L (0-32); Blood Urea Nitrogen 12 mg/dL (6-20); Calcium 9.2 mg/dL (8.5-10.5); Carbon Dioxide 26 mmol/L (22-29); Chloride 101 mmol/L (98-107); Glomerular Filtration Rate 96.4 mL/min (90-130); Glucose 114 mg/dL (65-115); Lipase 17 U/L (13-60); Osmolality Calculated 291 mOsm/kg (285-295); Potassium 3.3 mmol/L (3.5-5.1); Sodium 140 mmol/L (136-145); Total Bilirubin 0.2 mg/dL (0.15-1.2)
[2023-06-15 15:25] LABS: HCG, Serum Qual Negative (Negative)
[2023-06-15 15:55] VITALS: O2SAT 99
--- NOTE | 2023-06-15 15:57 | ED_ITS ---
HPI - COVID 2 General: Chief Complaint: COVID symptoms Stated Complaint: Flu+, vomiting Time Seen by Provider: 06/15/23 15:52 Source: patient Mode of arrival: ambulatory Limitations: no limitations History of Present Illness: 33-year-old female states she has had denny dyaches fever for 3 days she was seen yesterday and diagnosed with influenza she states that she has had vomiting has not been able to keep anything down and feels dehydrated and weak. She denies any abdominal pain denies any diarrhea denies any worse improved factors. COVID 19 common symptoms: positive fever(s), chills, fatigue and vomiting; negative dyspnea, body aches, headache(s), throat pain, nausea or diarrhea COVID 19 other sytmptoms: negative chest pain COVID Results: 2 SARS-CoV-2 Antigen (Rapid) Negative (Negative) 04/16/22 16:55 Review of Systems 2 Const: Reports: fever(s), chills, fatigue and malaise; Denies: body aches or change in appetite ENMT: Denies: throat pain Card: Denies: chest pain Resp: Denies: dyspnea GI: Reports: vomiting; Denies: abdominal pain, nausea or diarrhea : Denies: dysuria Musc: Denies: neck pain or back pain Skin/Breast: Denies: rash Neuro: Denies: headache(s) PFSH ED 2 PFSH: Medical History Hx-TIA (transient ischemic attack) Surgical History Hx of section Hx of section Family History Mother CAD (coronary artery disease) [place] at 39 Cancer Grandmother Cancer Grandfather Dementia Denies family history of Diabetes Clotting disorder Chronic kidney disease (CKD) Suicide Anesthesia complication Bleeding disorder Lung disease Stroke Social History Smoking and tobacco/nicotine status: former use of tobacco/nicotine Quit status (tobacco/nicotine): has quit using Second hand smoke exposure: No Alcohol intake: former Substance/Drug Use: former Adopted: No Caregiver/support person: No Lives independently: Yes Household members: children Number of children: 2 service: No Do you think of yourself as: Straight/Heterosexual Current gender identity: Female Female Reproductive History: Para: 1 Physical Exam 2 Const: COMMON NORMALS: no acute distress, patient oriented x3 and healthy appearing HENMT: COMMON NORMALS: normocephalic and atraumatic HEAD & SCALP: n ormocephalic and atraumatic Eye: COMMON NORMALS: Equal, round and reactive pupils present and EOMs intact bilaterally PUPIL: Yes Equal, round and reactive pupils present Neck/C-Spine: COMMON NORMALS: full ROM and supple Chest: COMMONS NORMALS: normal inspection of the chest and normal palpation of entire chest wall Resp: COMMON NORMALS: normal respiratory effort, No retractions, No use of accessory muscles and clear to auscultation bilaterally AUSCULTATION: clear to auscultation bilaterally Cardio: COMMON NORMALS: regular rate, regular rhythm and No murmurs present (Cardio) RATE: regular rate RHYTHM: regular rhythm GI: COMMON NORMALS: Normal to inspection, nondistended, normoactive bowel sounds present, Soft to palpation, non-tender and no masses PALPATION: Yes Soft to palpation Extremity: COMMON NORMALS: normal to inspection and full ROM Neuro: COMMON NORMALS: patient oriented x3, moves all extremities and no focal motor deficits Psych: COMMON NORMALS: mental status grossly normal, Normal thought process present and cooperative THOUGHT PROCESS: Normal thought process present Skin: COMMON NORMALS: no rashes or lesions noted and no wounds GENERAL SKIN EXAM: no rashes or lesions noted Course 2 Vital Signs: Vital signs: Vital Signs Temperature 99.9 F H 06/15/23 13:44 Pulse Rate 98 06/15/23 13:44 Respiratory Rate 14 06/15/23 13:44 Blood Pressure 121/81 06/15/23 13:44 Pulse Oximetry 99 06/15/23 15:55 Oxygen Delivery Me thod Room Air 06/15/23 15:55 MDM - COVID Medical Decision Making Patient presents with influenza while vomiting she feels much improved after IV fluids and Zofran she is stable for discharge she is follow-up with PCP will prescribe her Phenergan she is return if worsening. Medical Records I reviewed the patient's medical records. Lab Data I reviewed the patient's lab results. 06/15/23 14:23 06/15/23 14:23 Laboratory Results WBC 7.58 10^3/uL (3.29-11.43) 06/15/23 14:23 RBC 4.87 10^6/uL (3.85-5.65) 06/15/23 14:23 Hgb 13.20 g/dL (11.27-16.99) 06/15/23 14:23 Hct 41.9 % (36-47) 06/15/23 14:23 MCV 86.0 fl (85-98) 06/15/23 14:23 MCH 27.1 pg (27-33) 06/15/23 14:23 MCHC 31.5 g/dL (30-55) 06/15/23 14:23 RDW 14.2 % (12.1-15.1) 06/15/23 14:23 Plt Count 224 10^3/cmm (157-399) 06/15/23 14:23 MPV 10.9 fL (7.4-10.4) H 06/15/23 14:23 Neut % (Auto) 67.0 % 06/15/23 14:23 Lymph % (Auto) 21.4 % 06/15/23 14:23 [place] % (Auto) 10.8 % 06/15/23 14:23 Eos % (Auto) 0.4 % 06/15/23 14:23 Baso % (Auto) 0.1 % 06/15/23 14:23 Neut # (Auto) 5.08 10^3/uL (1.8-7.7) 06/15/23 14:23 Lymph # (Auto) 1.6 10^3/uL (0.8-4.8) 06/15/23 14:23 [place]akon # (Auto) 0.8 10^3/uL (0.2-0.9) 06/15/23 14:23 Eos # (Auto) 0.0 10^3/uL (0.0-0.8) 06/15/23 14:23 Baso # (Auto) 0.0 10^3/uL (0.0-0.1) 06/15/23 14:23 Nucleated RBC % (auto) 0 % 06/15/23 14:23 Nucleated RBCs # 0.0 /100WBC 06/15/23 14:23 Sodium 140 mmol/L (136-145) 06/15/23 14:23 Potassium 3.3 mmol/L (3.5-5.1) L 06/15/23 14:23 Chloride 101 mmol/L (98-107) 06/15/23 14:23 Carbon Dioxide 26 mmol/L (22-29) 06/15/23 14:23 Anion Gap 16.3 (5-19) 06/15/23 14:23 BUN 12 mg/dL (6-20) 06/15/23 14:23 Creatinine 0.7 mg/dL (0.5-0.9) 06/15/23 14:23 GFR Calculation 96.4 mL/min (90-130) 06/15/23 14:23 Glucose 114 mg/dL (65-115) 06/15/23 14:23 Calculated Osmolality 291 mOsm/kg (285-295) 06/15/23 14:23 Calcium 9.2 mg/dL (8.5-10.5) 06/15/23 14:23 Total Bilirubin 0.2 mg/dL (0.15-1.2) 06/15/23 14:23 AST 19 U/L (0-32) 06/15/23 14:23 ALT 22 U/L (0-33) 06/15/23 14:23 Alkaline Phosphatase 111 U/L (35-105) H 06/15/23 14:23 Total Protein 8.0 g/dL (6.6-8.7) 06/15/23 14:23 Albumin 4.0 g/dL (3.5-5.2) 06/15/23 14:23 Globulin 4.0 g/dL (1.3-4.6) 06/15/23 14:23 Lipase 17 U/L (13-60) 06/15/23 14:23 HCG, Qual Negative (Negative) 06/15/23 14:23 2 SARS-CoV-2 Antigen (Rapid) Negative (Negative) 04/16/22 16:55 No radiology studies performed this visit Discharge Plan Discharge Patient Disposition: Home Clinical Impression: Influenza, Vomiting Condition: Stable Prescriptions: New promethazine 25 mg tablet 25 mg PO TID PRN (Reason: nausea and vomiting) Qty: 14 0RF No Action aspirin [Adult Low Dose Aspirin] 81 mg tablet,delayed release (DR/EC) 81 mg PO BID carvedilol 6.25 mg tablet 6.25 mg PO BID Qty: 180 3RF Rx Instructions: must administer with a meal/food levetiracetam 250 mg tablet 250 mg PO BID Qty: 60 5RF fluoxetine 20 mg capsule 20 mg PO DAILY Qty: 30 5RF medroxyprogesterone [Depo-Provera] 150 mg/mL syringe 150 mg IM Q90D Qty: 1 3RF ciprofloxacin HCl 500 mg tablet 500 mg PO BID 7 Days Qty: 14 0RF oseltamivir [Tamiflu] 75 mg capsule 75 mg PO DAILY Qty: 10 0RF Rx Instructions: increase to BID dosing if symptomatic albuterol sulfate 90 mcg/actuation HFA aerosol inhaler 2 puff inhalation QID PRN (Reason: shortness of breath or wheezing) Qty: 6.7 5RF naproxen 500 mg tablet 500 mg PO BID PRN (Reason: pain) Qty: 60 0RF ondansetron 8 mg tablet,disintegrating 8 mg PO Q8H 5 Days Qty: 15 0RF omeprazole 40 mg capsule,delayed release(DR/EC) 40 mg PO DAILY Qty: 30 0RF oseltamivir [Tamiflu] 75 mg capsule 75 mg PO BID 5 Days Qty: 10 0RF ondansetron HCl 8 mg tablet 8 mg PO Q8H PRN (Reason: nausea and vomiting) 5 Days Qty: 15 0RF Discharge Orders: Discharge ED (Routine); Ordered 06/15/23 Ordered By: Devan Deleon Referrals: Vickie Ochoa FNP-C [Primary Care Provider] - 1-3 days Discharge Diet: Advance as tolerated Discharge Activity: Resume usual activity Patient Instructions: Influenza (ED), Acute Nausea and Vomiting (ED) Coding Level of Care Code ED Assistant Health Educator for Nate Castaneda
[2023-06-15] MEDS: sodium chloride 0.9% 1,000 ML 999 ML IV (16:25)
[2023-06-15] MEDS: ondansetron 2 mg/ML SDV 2 mL 4 MG IVP (16:44)
[2023-06-15] MEDS: acetaminophen 500 mg Tablet 1000 MG PO (16:47)
[2023-06-15 17:48] VITALS: BP 121/81; PULSE 98; RESP 14; TEMP 37.7; O2SAT 99
[2023-06-15 18:04] LABS: Add Urine Microscopic? YES; Bilirubin Urine 1+ (Negative); Blood Urine 2+ (Negative); Glucose Urine UA Norm (Normal); Ketones Urine 3+ (Negative); Leukocyte Esterase Urine 2+ (Negative); Nitrate Urine Negative (Negative); Protein Urine 1+ (Negative); Urine Appearance Clear (CLEAR); Urine Color Amber (Yellow); Urobilinogen Urine 1 mg/dL (Negative); pH Urine 5 (5-7)
[2023-06-15 18:06] LABS: Add Urine Culture? Yes; Bacteria Urine 1+ /hpf; Mucus Urine 2+ /hpf; Squamous Epithelial Cell Urine 0-4 /hpf (0-5)
== END 2023-06-15 17:49 | disposition home or self-care (01) ==
PROVIDERS: Emergency Provider Emergency Medicine; PCP Nurse Practitioner Family
DX: J11.1 Influenza due to unidentified influenza virus with other respiratory manifestations (principal); Z87.891 Personal history of nicotine dependence; Z86.73 Personal history of transient ischemic attack (TIA), and cerebral infarction without residual deficits
CPT/HCPCS: 36415; 80053; 81001; 83690; 84703; 85025; 87086; 96374; 99284; J2405; J7030

== ENCOUNTER → 2023-06-24 13:29 | Outpatient (BNVA) | payer OTHER, MEDICAID, SELFPAY | PROVIDERS: PCP Nurse Practitioner Family; Visit Provider Nurse Practitioner Family | DX: R30.0 Dysuria (principal); G40.909 Epilepsy, unspecified, not intractable, without status epilepticus; N30.00 Acute cystitis without hematuria | CPT/HCPCS: 81000 ==

== ENCOUNTER → 2023-07-29 13:34 | Outpatient (BNVA) | payer OTHER, MEDICAID, SELFPAY | PROVIDERS: PCP Nurse Practitioner Family; Visit Provider Nurse Practitioner Family | DX: Z30.42 Encounter for surveillance of injectable contraceptive (principal); Z30.9 Encounter for contraceptive management, unspecified | CPT/HCPCS: 81025 ==

== ENCOUNTER → 2023-10-04 16:01 | Outpatient (BNVA) | payer OTHER, MEDICAID, SELFPAY | PROVIDERS: PCP Nurse Practitioner Family | DX: R39.9 Unspecified symptoms and signs involving the genitourinary system (principal); N10 Acute pyelonephritis | CPT/HCPCS: 81000 ==

== ENCOUNTER → 2023-11-10 14:59 | Outpatient (BNVA) | payer OTHER, MEDICAID, SELFPAY | PROVIDERS: PCP Nurse Practitioner Family; Visit Provider Nurse Practitioner Family | DX: Z30.9 Encounter for contraceptive management, unspecified (principal); Z30.42 Encounter for surveillance of injectable contraceptive; N39.0 Urinary tract infection, site not specified | CPT/HCPCS: 81000; 81025 ==

== ENCOUNTER → 2023-11-27 15:07 | Outpatient (BNVA) | payer BC, MEDICAID, SELFPAY | PROVIDERS: PCP Nurse Practitioner Family; Visit Provider Registered Nurse Neonatal Intensive Care | DX: R39.9 Unspecified symptoms and signs involving the genitourinary system (principal); N39.0 Urinary tract infection, site not specified | CPT/HCPCS: 81000; 87086 ==

== ENCOUNTER → 2024-07-11 15:27 | Outpatient (BNVA) | payer BC, MEDICAID, SELFPAY | PROVIDERS: PCP Nurse Practitioner Family; Visit Provider Clinical Nurse Specialist Adult Health | DX: I10 Essential (primary) hypertension (principal) | CPT/HCPCS: 80053; 80061; 85025 ==

== ENCOUNTER → 2025-02-13 09:50 | Outpatient (BNVA) | payer BC, MEDICAID, SELFPAY | PROVIDERS: PCP Clinical Nurse Specialist Adult Health; Visit Provider Clinical Nurse Specialist Adult Health | DX: M79.2 Neuralgia and neuritis, unspecified (principal) | CPT/HCPCS: 72072 ==